=== PATIENT | male | born 1960 | race Asian ===

== ENCOUNTER → 2020-06-04 14:51 | Outpatient (BNVA) | payer MEDICARE, SELFPAY | PROVIDERS: PCP Internal Medicine; Visit Provider Internal Medicine Cardiovascular Disease | DX: I10 Essential (primary) hypertension (principal); E78.00 Pure hypercholesterolemia, unspecified; R94.31 Abnormal electrocardiogram [ECG] [EKG]; R07.9 Chest pain, unspecified | CPT/HCPCS: 93005; 99202 ==

== ENCOUNTER → 2020-07-07 09:18 | Outpatient (REF) | payer MEDICARE, SELFPAY ==
--- NOTE | 2020-07-07 09:22 | CA_ITS ---
Acquisition Time: 2020-07-07 11:21:10 Total Exercise Time: 00:10:39 Test Indications: Abnormal ECG Medications: ATENOLOL ATORVASTATIN LEVOTHYROXINE Protocol: ZULMA Max HR: 141 BPM 88% of Pred: 160 BPM Max BP: 182/082 mmHG Max Work Load: 12.7 METS Exercise stress ECHO using Zulma protocol. Total of 10 min 39 sec. METS 12.70and with TAPHR up to 88 %. Pt tolerated well. Denies any anginal sx. EKG with occ. PVC's, no ischemic changes seen during exercise or in recovery. ECHO images taken at rest and immediately after peak HR achieved. Definity contrast used. Normotensive response to exercise. Test reversed with Dr. Coleman STRESS ECHO : Technique : Images were obtiane da rest and immediately post exercise within 1 minute. Definity was used to enhance endocardial defintion Images were obtained in multiple views and compared side to side Findings : Images at rest are of good quality. LV systolic function is normal with normal wallmotion. Post exercise images are sub optimal as apical views are off axis with respiratory artefact. There appears to be overall excellent augmentation of overall LV systolic function. However RWMA is difficult to interpret. Conclusion : Stress echo non diagnostic for ischemia. COnsider alternative imagin modalities. Referred By: Gasper Parnell Overread By: OLE RAMIREZ MD
--- NOTE | 2020-07-07 09:22 | CA_ITS ---
Transthoracic Echocardiogram Patient (Last, First, Middle): Sj Sánchez Lam Gender: Male Date of : 1960 Age: 59 Procedure Date: 07/07/2020 Procedure Type: Transthoracic Echocardiogram Location: OP Height: 172.72 cm Weight: 68.04 kg BSA: 1.81 m2 Heart Rate: bpm BP: 120 / 90 mmHg Project Controls Specialist: WILLIAM Quarles MD: Gasper Parnell MD Drafting Supervisor: Eder Junior MD Symptoms: R94.31 - Abnormal electrocardiogram [ECG] [EKG] Study Quality: Good ECG Rhythm: Sinus Conclusions: - 1. Normal LV systolic function 2. Normal cardiac valvular Doppler 3. Normal RV systolic pressure 4. No pericardial effusion Findings Left Ventricle Normal left ventricular size, thickness, and systolic function. The visually estimated ejection fraction is between 55-60%. Diastolic function is normal for age. Right Ventricle Normal right ventricular cavity size and systolic function. Atria The left atrium is likely dilated. There is no evidence of interatrial shunt. The right atrium is normal in size. Aortic Valve Normal aortic valve structure and function. There is no aortic valve stenosis. There is no aortic valve regurgitation. Mitral Valve Normal mitral valve structure and function. There is trace mitral valve regurgitation. There is no mitral valve stenosis. Pulmonic Valve The pulmonic valve was not well visualized. Tricuspid Valve Likely normal tricuspid valve structure and function. There is trace tricuspid valve regurgitation. The right ventricular systolic pressure is normal. The right ventricular systolic pressure is 18 mmHg. Normal right atrial pressure. There is no evidence of pulmonary hypertension. Great Vessels All visible segments of the aorta are normal in size. The pulmonary artery was not well visualized. Venous The inferior vena cava is normal in size and collapses greater than 50% with inspiration. Pericardium/Pleural There is no evidence of pericardial effusion. Prior Study Comparison No change compared to prior study dated: 01/08/2017. Measurements 2D Linear Measurements IVSd: 0.90 0.6-0.9/0.6-1.0 cm LVIDd: 5.38 3.9-5.3/4.2-5.9 cm LVIDd Index: 2.97 2.4-3.2/2.2-3.1 cm/m2 LVIDs: 3.35 2.0-3.6 cm LVPWd: 0.96 0.7-1.1 cm Ao Root: 3.40 2.1-3.5 cm LA Diam: 3.70 2.7-3.8/3.0-4.0 cm LAIDs Index: 2.04 1.5-2.3 cm/m2 LV Mass: 232.90 67-162/88-224 g LV Mass Index: 128.67 43-95/49-115 g/m2 LVOT Diam: 2.30 3.0+(-)1.3 cm 2D Systolic Function EF 4C: 55.10 >55% EF 2C: 58.60 >55% EF BiP: 56.70 >55% Mitral Valve MV Pk E: 0.67 MV PK A: 0.55 MV Decel Time: 306.00 E/A: 1.20 E'Lateral: 7.29 E'Medial: 5.87 E/E' Med: 11.50 E/E' Lat: 9.20 PHT: 90.00 MVA PHT: 2.44 Decel [place]: 2.20 Aortic Valve AoV Pk [place]: 1.28 AoV Mn [place]: 0.87 AoV VTI: 0.32 AoV Pk Grad: 7.00 Aov Mn Grad: 3.00 JOSE Cont.VTI: 2.89 LVOT LVOT Pk [place]: 1.03 LVOT Mn [place]: 0.63 LVOT VTI: 0.22 LVOT Pk Grad: 4.00 LVOT Mn Grad: 2.00 LVOT Diam: 2.30 LVOT Area: 4.15 Diastolic Function MV Pk E: 0.67 MV Pk A: 0.55 E/A: 1.20 E'Medial: 5.87 E/E' Med: 11.50 E' Laterial: 7.29 E/E' Lat: 9.20 Tricuspid Valve TR Pk [place]: 1.93 TR Pk Grad: 15.00 RA Press: 3.00 RVSP: 18.00 Great Vessels Aorta Ao Root-2D: 3.40 2.0-3.7 cm Ao Asc: 3.30 2.1-3.4 cm Ao Arch: 2.60 Updated in Other Vendor System with Status of Final Eder Junior MD electronically signed on 07/07/2020 12:37:50 PM with status of Final
== END ==
LOC: HO.CARD 09:18
PROVIDERS: PCP Internal Medicine; Visit Provider Internal Medicine Cardiovascular Disease
DX: R94.31 Abnormal electrocardiogram [ECG] [EKG] (principal)
CPT/HCPCS: 93306; 93350; Q9957

== ENCOUNTER → 2020-07-14 13:00 | Outpatient (BNVA) | payer MEDICARE, SELFPAY | PROVIDERS: PCP Internal Medicine; Visit Provider Internal Medicine Gastroenterology | DX: Z13.89 Encounter for screening for other disorder (principal) | CPT/HCPCS: Q3014 ==

== ENCOUNTER 2020-07-23 08:30 | Outpatient (REF) | payer MEDICARE, SELFPAY ==
--- NOTE | ~2020-07-23 | CT_ITS ---
EXAMINATION: CT ABDOMEN AND PELVIS WITHOUT AND WITH CONTRAST CLINICAL INFORMATION: Liver disease. COMPARISON: None TECHNIQUE: Multidetector volumetric imaging was performed of the abdomen and pelvis before and after the IV administration of 85 mL of Omnipaque 300 intravenous contrast. Sagittal and coronal reformatted images were obtained on the technologist's workstation. This CT examination was performed using dose optimization techniques as appropriate, variously including the following: *Automated exposure control *Adjustment of mA and/or kV according to patient size (this includes techniques or standardized protocols for targeted exams where dose is matched to indication/reason for exam; i.e. extremities or head) *Use of iterative reconstruction technique DLP: 727 mGy-cm FINDINGS: LUNG BASES: The heart size is normal. There is bibasilar dependent atelectasis. LIVER, GALLBLADDER, AND BILIARY TREE: The liver is normal in size, shape, and diffusely attenuated. No focal hepatic lesion or biliary ductal dilatation is present. The gallbladder is unremarkable with no evidence of radiopaque gallstones, gallbladder wall thickening, or obvious pericholecystic inflammatory changes. PANCREAS: Unremarkable SPLEEN: Unremarkable ADRENAL GLANDS: Unremarkable KIDNEYS AND URETERS: The kidneys are normal in size, shape, and attenuation. No hydronephrosis, hydroureter, or calculi seen. No perinephric stranding. BLADDER: Unremarkable GASTROINTESTINAL TRACT: Scattered stool and gas seen throughout the colon without any significant distention. The small bowel loops are normal caliber. Appendix is not visualized. No inflammatory process seen in the abdomen. ABDOMINAL WALL: There are small lumbar canal hernia containing fat. LYMPH NODES: Normal VASCULAR: Unremarkable PELVIC VISCERA: There is no free air or free fluid. No pelvic mass seen. There is moderate stool in the redundant sigmoid colon. No evidence of inguinal hernia.. OSSEOUS STRUCTURES: Mild ventral spondylosis seen at the elbow-4 disc level. No lytic or sclerotic process. CT/CT abdomen pelvis wo/w con IMPRESSION: Diffuse fatty infiltration of liver without focal lesion. No focal lesion or intrahepatic ductal dilatation. Rest of CT abdomen appears unremarkable.
[2020-07-23 11:07] LABS: Alanine Aminotransferase 31 U/L (0-40); Albumin Level 4.5 g/dL (3.5-5.0); Alkaline Phosphatase 70 U/L (39-117); Anion Gap 11 (12-20); Aspartate Amino Transferase 19 U/L (5-37); Bilirubin Total 0.6 mg/dL (0.0-1.0); Blood Urea Nitrogen 14 mg/dL (9-16); Calcium 9.2 mg/dL (8.4-10.2); Carbon Dioxide 27 mmol/L (22-29); Chloride 104 mmol/L (96-108); Estimated Glomerular Filt Rate > 60; Glucose Random 108 mg/dL (60-115); Potassium 4.4 mmol/L (3.3-5.1); Sodium 138 mmol/L (135-145); Total Protein 7.4 g/dL (6.5-8.0)
== END 2020-07-23 08:31 | disposition home or self-care (01) ==
LOC: HO.CT 08:30
PROVIDERS: PCP Internal Medicine; Visit Provider Internal Medicine Gastroenterology
DX: K76.9 Liver disease, unspecified (principal)
CPT/HCPCS: 36415; 74178; 80053; Q9967

== ENCOUNTER 2020-07-31 12:26 | Outpatient (REF) | payer MEDICARE, SELFPAY | END 2020-07-31 12:27 | disposition home or self-care (01) | LOC: HO.WFDLDS 12:26 | PROVIDERS: Visit Provider Internal Medicine | DX: Z20.822 Contact with and (suspected) exposure to COVID-19 (principal) | CPT/HCPCS: 36415; C9803; U0003; U0005 ==

== ENCOUNTER 2020-08-21 08:54 | Day surgery (SDC) | payer MEDICARE, SELFPAY ==
--- NOTE | 2020-08-20 09:23 | P.CONAN_ITS ---
Documented by User: Ema Kenney 08/20/20 12:44 HPI - Anesthesia Eval Consult details Narrative: 59yo M for Upper Endoscopy and Colonoscopy Per T/C with Dr aPrnell, pt is clear at low to intermed risk PMFSH Active Problems Active Problems: All Active Problems (Updated 05/02/20 @ 15:55 by Bruce Acosta MD) Joint pain (Acute) Abnormal EKG (Acute) Chest pain (Acute) Liver lesion (Acute) Dementia (Acute) History of prostate cancer (Acute) Hypercholesterolemia (Acute) Allergic rhinitis (Acute) Hypertension (Acute) Asthma (Acute) Past Medical History Medical History Allergic rhinitis Asthma Dementia History of prostate cancer Hypercholesterolemia Hypertension Hypothyroid Family History Family History Father No problems noted. Mother No problems noted. Surgical History Surgical History History of facial surgery History of inguinal hernia repair History of prostate surgery SAH (subarachnoid hemorrhage) Social History Social History Household Members: Spouse Alcohol intake: current Alcohol intake frequency: does not drink Smoking Status: Never smoker Use of substances other than those prescribed or required for medical reasons: No Advance Directives: No Advance Directives Information Provided: Yes Meds Allergies Allergy/AdvReac Type Severity Reaction Status Date / Time SEASONAL ALLERGIES Allergy Mild Itchy Eyes Uncoded 08/21/20 09:35 Exam Exam Date and Time: August 20, 2020 0923 Height,Weight and Vital Signs: Weight 74.389 kg Narrative Narrative: ECHO 06/2020 Conclusions: - 1. Normal LV systolic function 2. Normal cardiac valvular Doppler 3. Normal RV systolic pressure 4. No pericardial effusion Stress ECHO 06/2020 Conclusion : Stress echo non diagnostic for ischemia. COnsider alternative imagin modalities. Assessment and Plan Assessment Anesthesia Assessment: Chart Reviewed Documented by User: Gisele Hernandez 08/21/20 11:24 [facility] Past Medical History Medical History Allergic rhinitis Asthma Dementia History of prostate cancer Hypercholesterolemia Hypertension Hypothyroid Family History Family History Father No problems noted. Mother No problems noted. Family history of problems with anesthesia: No Surgical History Surgical History History of facial surgery History of inguinal hernia repair History of prostate surgery SAH (subarachnoid hemorrhage) History of Problems with Anesthesia: No Social History Social History Household Members: Spouse Alcohol intake: current Alcohol intake frequency: does not drink Smoking Status: Never smoker Use of substances other than those prescribed or required for medical reasons: No Advance Directives: No Advance Directives Information Provided: Yes Meds Allergies Allergy/AdvReac Type Severity Reaction Status Date / Time SEASONAL ALLERGIES Allergy Mild Itchy Eyes Uncoded 08/21/20 09:35 Exam Exam Date and Time: Height 5 ft 6.93 in Weight 68.039 kg Height,Weight and Vital Signs: Vital Signs Temp Pulse Resp BP Pulse Ox 08/21/20 09:18 96.6 F L 56 18 131/81 100 Airway Mallampati Class: III TM Dist: >3cm Neck ROM: Full Heart: RRR Lungs: CTAB Assessment and Plan Assessment Anesthesia Assessment: Anesthesia Plan Discussed and Chart Reviewed Final Anesthetic Review NPO: Yes ASA Class: III Final Preanesthetic Review: No Changes in Pt Med Stat, Meds/Allgs Chart Reviewed, Consent Obtained/Reviewed and Anes Risks/Benef Reviewed Patient Risk: Intermediate Procedure Risk: Low Assessment/Block/Sedation in SS: Assess/Block/Sedation-SS Anesthetic Plan Anesthetic Plan: MAC: Disposition: Standard PACU
[2020-08-21 09:18] VITALS: BP 131/81; PULSE 56; RESP 18; TEMP 35.9; O2SAT 100; BMI 23.5
[2020-08-21] MEDS: Lactated Ringers 1,000 ML 100 ML IVCONT (09:37)
--- NOTE | 2020-08-21 10:28 | MHC.SHP ---
Pre-Procedural Eval Section B Chief Complaint: Anemia Relevant Family History (Specify if Yes): No Relevant Social History: None Present Medications: see Short Stay Collaborative assessment Medical History: Significant History (Allergic rhinitis Asthma Dementia History of prostate cancer Hypercholesterolemia Hypertension Hypothyroid) History of Previous Operations: Relevant previous surgery/procedure and date(s) Allergies: Allergies Allergy/AdvReac Type Severity Reaction Status Date / Time SEASONAL ALLERGIES Allergy Mild Itchy Eyes Uncoded 08/21/20 09:35 Review of Systems Sugical H&P ROS: Negative: Constitution, Cardiovascular, Respiratory, Neurological, Psychiatric, Hem-Onc, Allergic/Immunologic, Gastrointestinal, Genitourinary, Musculoskeletal, Integumentary, Endocrine and Eyes/Ears/Nose/Throat Exam Surgical H&P Exam: Normal: HEENT, Normal: Heart, Normal: Lungs, Normal: Extremities, Normal: Abdomen, Normal: Skin and Normal: Neurological Plan Diagnosis/Plan: Unchanged I have reviewed the history and physical and performed a pertinent physical examination on my patient. No changes have occurred unless specified.
--- NOTE | 2020-08-21 10:38 | P.OP_ITS ---
Operative Note Operative Note Date of Service: 08/21/20 Narrative: Operative Information Procedure Description: EGD, Colonoscopy FLEXIBLE TRANSORAL UPPER GASTROINTESTINAL ENDOSCOPY AND COLONOSCOPY PROCEDURE NOTE UPPER ENDOSCOPY Consent: Indications for the procedure and potential complications of bleeding, perforation, reaction to medications and missed diagnosis were discussed with the patient and informed consent was obtained. Instrument: Olympus GIF H 190 J mid size upper endoscope Monitoring: Vital signs and clinical assessment, continuous EKG monitoring, Pulse oximetry, Carbon Dioxide monitoring and blood pressure monitoring were done throughout the procedure. Procedure: The patient was placed in the left lateral decubitis position and pre-procedure medications were administered and a bite block was placed. The endoscope was inserted into the mouth and advanced under direct vision to the third part of duodenum. A careful inspection was made as the upper endoscope was withdrawn including a retroflexed examination of the proximal stomach; Findings and interventions are described below. Findings: Larynx:normal Esophagus: GE junction at 40 cm, diaphragm hiatus at 40 cm, few nodular patches at 32 and 22 cm, biopsy taken Stomach: Atrophic gastritis. Biopsies were obtained. Grade 2 flap valve on retroflexed examination of the cardia. Duodenum: Normal bulb and descending duodenum, bx taken Intervention: Biopsies as noted above COLONOSCOPY Instrument: Olympus variable stiffness pediatric scope 190L Colonoscopy Monitoring: Vital signs and clinical assessment, continuous EKG monitoring, Pulse oximetry, Carbon Dioxide monitoring and blood pressure monitoring were done throughout the procedure. Colon withdrawal time was 17 minutes. Procedure: The patient was placed in the left lateral decubitis position and pre-procedure medications were administered. After a digital rectal examination of the ano-rectum, the video colonoscope was inserted into the rectum and advanced through the colon to the cecum/TI. The colonoscope was slowly withdrawn in a retrograde panoramic fashion and the colon mucosa was carefully examined including a retroflexed view of the rectum. Findings and interventions are described below. Procedure Difficulty: moderate due to looping Findings: Terminal Ileum-normal Cecum:normal Ascending Colon: 5-6 mm sessile polyp noted on retroflexion and removed with forceps Transverse Colon - 8-10 mm sessile polyp removed with cold snare Descending Colon:10 mm sessile polyp removed with cold snare Sigmoid Colon: 18-20 mm semi pedunculated polyp removed with cold snare and 4 clips used to close defect and for hemostasis Rectum: Retroflexion with small internal hemorrhoids, grade I Anorectum - normal Colon preparation: [place] Bowel Preparation Scale Right colon; 3 Transverse colon: 3 Left colon; 3 (0 = Unprepared colon segment with mucosa not seen due to solid stool that cannot be cleared. 1 = Portion of mucosa of the colon segment seen, but other areas of the colon segment not well seen due to staining, residual stool and/or opaque liquid. 2 = Minor amount of residual staining, small fragments of stool and/or opaque liquid, but mucosa of colon segment seen well. 3 = Entire mucosa of colon segment seen well with no residual staining, small fragments of stool or opaque liquid) Impression and Post Procedure Diagnosis: Endoscopy Findings: atrophic gastritis Colonoscopy Findings: polyps internal hemorrhoids Plan: Await Pathology results Repeat Colonoscopy in 1-2 years or earlier if clinically indicated High fiber diet leaflet avoid straining at stool, epsom salts and sitz bath, anusol supps or cream as needed office follow up in few months Above findings were reviewed with the patient and relevant handouts were provided if indicated.
--- NOTE | 2020-08-21 10:38 | PM.OP ---
Brief Operative Note Date of Service: 08/21/20 Pre-op diagnosis: anemia Post-op diagnosis: same Procedure: see op note Surgeon: Makenzie Bourgeois MD Anesthesia: MAC Estimated blood loss (mL): 0 Condition: stable Disposition: PACU
[2020-08-21 11:56] VITALS: BP 90/46; PULSE 66; RESP 16; TEMP 36.1; O2SAT 94
[2020-08-21 12:11] VITALS: BP 103/69; PULSE 60; RESP 16; O2SAT 95
[2020-08-21 12:23] VITALS: BP 113/59; PULSE 74; RESP 16; TEMP 36.1; O2SAT 97
== END 2020-08-21 13:05 | disposition home or self-care (01) ==
PROVIDERS: PCP Internal Medicine; Visit Provider Internal Medicine Gastroenterology
PROC: (CPT 45380; principal; 2020-08-21 10:10)
DX: D64.9 Anemia, unspecified (principal); D12.2 Benign neoplasm of ascending colon; D12.3 Benign neoplasm of transverse colon; D12.4 Benign neoplasm of descending colon; D12.5 Benign neoplasm of sigmoid colon; K64.0 First degree hemorrhoids; K56.2 Volvulus; K29.40 Chronic atrophic gastritis without bleeding; K20.90 Esophagitis, unspecified without bleeding; I10 Essential (primary) hypertension; J45.909 Unspecified asthma, uncomplicated
CPT/HCPCS: 45380; 43239; 88305; 88312; 88342; J3010

== ENCOUNTER 2020-10-20 09:02 | Outpatient (REF) | payer MEDICARE, SELFPAY ==
[2020-10-22 14:07] LABS: H Pylori Breath Test DETECTED (NOT DETECTED)
== END 2020-10-20 09:03 | disposition home or self-care (01) ==
LOC: CF 09:02
PROVIDERS: PCP Internal Medicine; Visit Provider Internal Medicine Gastroenterology
DX: Z11.0 Encounter for screening for intestinal infectious diseases (principal); Z87.19 Personal history of other diseases of the digestive system
CPT/HCPCS: 83013; 99211

== ENCOUNTER 2020-12-16 09:00 | Outpatient (REF) | payer MEDICARE, SELFPAY ==
[2020-12-17 13:15] LABS: H Pylori Breath Test NOT DETECTED (NOT DETECTED)
== END 2020-12-16 09:01 | disposition home or self-care (01) ==
LOC: HO.LNP 09:00
PROVIDERS: PCP Internal Medicine; Referring Provider Internal Medicine; Visit Provider Internal Medicine Gastroenterology
DX: Z87.19 Personal history of other diseases of the digestive system (principal)
CPT/HCPCS: 83013

== ENCOUNTER 2021-04-01 09:27 | Outpatient (REF) | payer MEDICARE, SELFPAY ==
[2021-04-01 09:34] LABS: MANUAL DIFF FLAG NO
[2021-04-01 10:09] LABS: Basophils Percent Auto 0.7 % (0-2); Eosinophils Absolute Auto 0.4 X10*3/uL (0.0-0.4); Hemoglobin 13.8 g/dl (14.0-18.0); Imm Gran Abs Auto 0.01 X10*3/uL (0.00-0.03); Imm Gran Pct Auto 0.2 % (0.0-0.4); Immature Retic Fraction 7.4 % (2.3-13.4); Lymphocytes Absolute Auto 2.2 X10*3/uL (1.2-4.9); Lymphocytes Percent Auto 39.1 % (20-40); Mean Corpuscular HGB Conc 32.9 g/dl (31.0-36.0); Mean Corpuscular Hemoglobin 29.8 pg (27.0-33.0); Mean Corpuscular Volume 90.7 fL (80.0-98.0); Mean Platelet Volume 9.5 fL (9.4-12.4); Monocytes Absolute Auto 0.3 X10*3/uL (0.1-1.2); Monocytes Percent Auto 6.1 % (2-11); Neutrophils Absolute Auto 2.6 x10*3/uL (2.0-8.3); Neutrophils Percent Auto 46.9 % (45-73); Platelet Count 262 X10*3/uL (160-400); Red Blood Count 4.63 X10*6/uL (4.60-5.80); Red Cell Distribution Width 12.7 % (11.0-16.0); Retic HGB Equivalent 34.5 pg (30.0-35.0); Reticulocyte Percent 1.3 % (0.5-1.8); Reticulocytes Absolute 0.062 X10*6/uL (0.026-0.095); White Blood Count 5.6 X10*3/uL (4.8-10.8)
[2021-04-01 10:15] LABS: Estimated Average Glucose 126 mg/dL
[2021-04-01 10:39] LABS: Alanine Aminotransferase 30 U/L (0-40); Albumin Level 4.6 g/dL (3.5-5.0); Alkaline Phosphatase 71 U/L (39-117); Anion Gap 12 (12-20); Aspartate Amino Transferase 21 U/L (5-37); Bilirubin Total 0.7 mg/dL (0.0-1.0); Blood Urea Nitrogen 13 mg/dL (9-16); Calcium 9.7 mg/dL (8.4-10.2); Carbon Dioxide 28 mmol/L (22-29); Chloride 103 mmol/L (96-108); Cholesterol 156 mg/dL; Estimated Glomerular Filt Rate > 60; Glucose Random 111 mg/dL (60-115); HDL Cholesterol 39 mg/dL; Iron 140 mcg/dL (45-160); LDL Cholesterol Calculated 93 mg/dl; Percent Iron Saturation 43 % (15-50); Potassium 4.6 mmol/L (3.3-5.1); Sodium 138 mmol/L (135-145); Total Iron Binding Capacity 328 mcg/dL (228-428); Total Protein 7.6 g/dL (6.5-8.0); Triglycerides 120 mg/dL; Unsaturated Iron Binding 188 ug/dL
[2021-04-01 11:01] LABS: Ferritin 118 ng/mL (20-250); Free T4 (Free Thyroxine) 1.03 ng/dL (0.71-1.85); Prostate Specific Antigen Scr < 0.05 ng/mL (<0.05-4.0); Thyroid Stimulating Hormone 0.29 uIU/mL (0.32-4.0)
[2021-04-01 12:09] LABS: Folate > 20.0 ng/mL (> or = 4.0); Vitamin B12 549 pg/mL (200-900)
== END 2021-04-01 09:28 | disposition home or self-care (01) ==
LOC: HO.LAB 09:27
PROVIDERS: PCP Internal Medicine; Visit Provider Internal Medicine
DX: Z12.5 Encounter for screening for malignant neoplasm of prostate (principal); E78.00 Pure hypercholesterolemia, unspecified; E03.9 Hypothyroidism, unspecified; Z85.46 Personal history of malignant neoplasm of prostate
CPT/HCPCS: 36415; 80053; 80061; 82607; 82728; 82746; 83036; 83540; 84153; 84439; 84443; 85025; 85045

== ENCOUNTER 2021-05-01 07:26 | Outpatient (REF) | payer MEDICARE, SELFPAY ==
[2021-05-01 08:29] LABS: Free T4 (Free Thyroxine) 1.05 ng/dL (0.71-1.85); Thyroid Stimulating Hormone 0.37 uIU/mL (0.32-4.0)
== END 2021-05-01 07:27 | disposition home or self-care (01) ==
LOC: HO.LAB 07:26
PROVIDERS: PCP Internal Medicine; Visit Provider Internal Medicine
DX: E03.9 Hypothyroidism, unspecified (principal)
CPT/HCPCS: 36415; 84439; 84443

== ENCOUNTER 2022-04-07 11:32 | Outpatient (REF) | payer MEDICARE, SELFPAY ==
[2022-04-07 11:47] LABS: MANUAL DIFF FLAG NO
[2022-04-07 12:09] LABS: Basophils Absolute Auto 0.1 X10*3/uL (0.0-0.2); Basophils Percent Auto 1.1 % (0-2); Eosinophils Absolute Auto 0.2 X10*3/uL (0.0-0.4); Eosinophils Percent Auto 5.1 % (0-4); Hematocrit 41.3 % (42.0-52.0); Hemoglobin 13.2 g/dl (14.0-18.0); Imm Gran Abs Auto 0.02 X10*3/uL (0.00-0.03); Imm Gran Pct Auto 0.4 % (0.0-0.4); Lymphocytes Absolute Auto 1.9 X10*3/uL (1.2-4.9); Lymphocytes Percent Auto 41.1 % (20-40); Mean Corpuscular Hemoglobin 28.9 pg (27.0-33.0); Mean Corpuscular Volume 90.4 fL (80.0-98.0); Mean Platelet Volume 9.4 fL (9.4-12.4); Monocytes Absolute Auto 0.3 X10*3/uL (0.1-1.2); Monocytes Percent Auto 6.6 % (2-11); Neutrophils Absolute Auto 2.1 x10*3/uL (2.0-8.3); Neutrophils Percent Auto 45.7 % (45-73); Platelet Count 257 X10*3/uL (160-400); Red Blood Count 4.57 X10*6/uL (4.60-5.80); Red Cell Distribution Width 12.6 % (11.0-16.0); White Blood Count 4.6 X10*3/uL (4.8-10.8)
[2022-04-07 12:43] LABS: Alanine Aminotransferase 30 U/L (0-40); Albumin Level 4.5 g/dL (3.5-5.0); Alkaline Phosphatase 80 U/L (39-117); Anion Gap 13 (12-20); Aspartate Amino Transferase 23 U/L (5-37); Bilirubin Total 0.5 mg/dL (0.0-1.0); Blood Urea Nitrogen 12 mg/dL (9-16); Calcium 9.6 mg/dL (8.4-10.2); Carbon Dioxide 27 mmol/L (22-29); Chloride 105 mmol/L (96-108); Cholesterol 148 mg/dL; Estimated Glomerular Filt Rate > 60; Glucose Random 106 mg/dL (60-115); HDL Cholesterol 42 mg/dL; LDL Cholesterol Calculated 88 mg/dl; Potassium 4.4 mmol/L (3.3-5.1); Sodium 141 mmol/L (135-145); Total Protein 7.3 g/dL (6.5-8.0); Triglycerides 91 mg/dL
[2022-04-07 13:05] LABS: Free T4 (Free Thyroxine) 0.99 ng/dL (0.71-1.85); Prostate Specific Antigen Scr < 0.10 ng/mL (<0.05-4.0); Thyroid Stimulating Hormone 0.05 uIU/mL (0.32-4.0)
[2022-04-07 14:00] LABS: Folate 18.2 ng/mL (> or = 4.0); Vitamin B12 541 pg/mL (200-900)
== END 2022-04-07 11:33 | disposition home or self-care (01) ==
LOC: HO.LAB 11:32
PROVIDERS: PCP Internal Medicine; Visit Provider Internal Medicine
DX: Z12.5 Encounter for screening for malignant neoplasm of prostate (principal); E03.9 Hypothyroidism, unspecified; E78.00 Pure hypercholesterolemia, unspecified
CPT/HCPCS: 36415; 80053; 80061; 82607; 82746; 84153; 84439; 84443; 85025

== ENCOUNTER 2022-10-05 10:16 | Outpatient (REF) | payer MEDICARE, SELFPAY ==
[2022-10-05 12:20] LABS: Free T4 (Free Thyroxine) 1.03 ng/dL (0.71-1.85); Thyroid Stimulating Hormone 7.49 uIU/mL (0.32-4.0)
== END 2022-10-05 10:17 | disposition home or self-care (01) ==
LOC: HO.LAB 10:16
PROVIDERS: PCP Internal Medicine; Visit Provider Internal Medicine
DX: E03.9 Hypothyroidism, unspecified (principal)
CPT/HCPCS: 36415; 84439; 84443

== ENCOUNTER 2022-11-29 12:16 | Outpatient (REF) | payer MEDICARE, SELFPAY ==
[2022-11-29 12:55] LABS: MANUAL DIFF FLAG NO
[2022-11-29 13:52] LABS: Basophils Percent Auto 0.5 % (0-2); Eosinophils Absolute Auto 0.3 X10*3/uL (0.0-0.4); Eosinophils Percent Auto 4.3 % (0-4); Hematocrit 41.3 % (42.0-52.0); Hemoglobin 13.7 g/dl (14.0-18.0); Imm Gran Abs Auto 0.02 X10*3/uL (0.00-0.03); Imm Gran Pct Auto 0.3 % (0.0-0.4); Immature Retic Fraction 8.4 % (2.3-13.4); Lymphocytes Absolute Auto 1.8 X10*3/uL (1.2-4.9); Lymphocytes Percent Auto 28.8 % (20-40); Mean Corpuscular HGB Conc 33.2 g/dl (31.0-36.0); Mean Corpuscular Hemoglobin 30.3 pg (27.0-33.0); Mean Corpuscular Volume 91.4 fL (80.0-98.0); Mean Platelet Volume 9.2 fL (9.4-12.4); Monocytes Absolute Auto 0.4 X10*3/uL (0.1-1.2); Monocytes Percent Auto 6.8 % (2-11); Neutrophils Absolute Auto 3.7 x10*3/uL (2.0-8.3); Neutrophils Percent Auto 59.3 % (45-73); Platelet Count 286 X10*3/uL (160-400); Red Blood Count 4.52 X10*6/uL (4.60-5.80); Red Cell Distribution Width 12.8 % (11.0-16.0); Retic HGB Equivalent 35.5 pg (30.0-35.0); Reticulocyte Percent 1.7 % (0.5-1.8); Reticulocytes Absolute 0.076 X10*6/uL (0.026-0.095); White Blood Count 6.3 X10*3/uL (4.8-10.8)
[2022-11-29 14:56] LABS: Alanine Aminotransferase 20 U/L (0-40); Albumin Level 4.5 g/dL (3.5-5.0); Alkaline Phosphatase 64 U/L (39-117); Aspartate Amino Transferase 18 U/L (5-37); Bilirubin Total 0.8 mg/dL (0.0-1.0); Blood Urea Nitrogen 15 mg/dL (9-16); Calcium 9.9 mg/dL (8.4-10.2); Carbon Dioxide 28 mmol/L (22-29); Chloride 104 mmol/L (96-108); Estimated Glomerular Filt Rate > 60; Glucose Random 102 mg/dL (60-115); Iron 130 mcg/dL (45-160); Percent Iron Saturation 42 % (15-50); Potassium 4.6 mmol/L (3.3-5.1); Sodium 140 mmol/L (135-145); Total Iron Binding Capacity 310 mcg/dL (228-428); Total Protein 7.5 g/dL (6.5-8.0); Unsaturated Iron Binding 180 ug/dL
[2022-11-29 15:05] LABS: Anion Gap 14 (12-20); Thyroid Stimulating Hormone 5.29 uIU/mL (0.32-4.0)
[2022-11-29 15:22] LABS: Folate 17.5 ng/mL (> or = 4.0)
[2022-11-29 15:32] LABS: Ferritin 148 ng/mL (20-250)
[2022-11-29 15:41] LABS: Vitamin B12 822 pg/mL (200-900)
== END 2022-11-29 12:17 | disposition home or self-care (01) ==
LOC: HO.LAB 12:16
PROVIDERS: PCP Internal Medicine; Visit Provider Internal Medicine
DX: E03.9 Hypothyroidism, unspecified (principal); D64.9 Anemia, unspecified
CPT/HCPCS: 36415; 80053; 82607; 82728; 82746; 83540; 84439; 84443; 85025; 85045

== ENCOUNTER 2023-01-24 11:25 | Outpatient (REF) | payer MEDICARE, SELFPAY ==
[2023-01-24 14:50] LABS: Free T4 (Free Thyroxine) 0.78 ng/dL (0.71-1.85); Thyroid Stimulating Hormone 3.86 uIU/mL (0.32-4.0)
== END 2023-01-24 11:26 | disposition home or self-care (01) ==
LOC: HO.LAB 11:25
PROVIDERS: PCP Internal Medicine; Visit Provider Internal Medicine
DX: E03.9 Hypothyroidism, unspecified (principal)
CPT/HCPCS: 36415; 84439; 84443

== ENCOUNTER 2023-01-31 11:01 | Outpatient (AMB) | payer MEDICARE, SELFPAY ==
--- NOTE | 2023-01-31 11:08 | A.OFFPC_ITS ---
Vital Signs 01/31/23 11:09 Height 5 ft 6 in Weight 157 lb BMI 25.3 BP 132/80 Blood Pressure Location Lt brachial Position Sitting Pulse 56 Pulse Source Pulse Oximeter Pulse Oximetry (%) 100 Oxygen Delivery Method Room Air Intake Visit Reasons: hypothyroid Intake Note: Patient here for a follow up hypothyroid Oil Program Compliance Specialist Required: No Accompanied by: Spouse Allergies SEASONAL ALLERGIES Allergy (Mild, Uncoded 01/31/23 11:10) Itchy Eyes Medication List - Last Reconciled 01/31/23 by Bruce Acosta MD albuterol sulfate 90 mcg/actuation 2 puffs inhalation Q4H PRN atenolol 25 mg PO DAILY atorvastatin 20 mg PO DAILY 90 days capsaicin 0.025% 1 appl topical TID fluticasone propionate 50 mcg/actuation (Flonase Allergy Relief) 2 sprays intranasal DAILY levothyroxine 112 mcg PO DAILY 30 days multivitamin 1 tab PO DAILY Tobacco use date assessed: 10/12/22 Dental Screening Dental Screen Date: 01/31/23 Did you have a dental visit in the last 12 months?: Yes Did you have a dental problem in the last 6 months where you did not have access to dental care?: No Was dental information given to patient?: Patient has dentist HPI hypothyroid HPI Details 62-year-old male with a history of prost ate cancer, hypercholesterolemia hypertension and hypothyroid last seen in September 2022. Patient's colonoscopy is up-to-date August 2020 patient is here for follow-up [facility] Medical History (Updated 01/31/23 @ 11:25 by Bruce Acosta MD) Vision changes Dementia History of prostate cancer Hypercholesterolemia Allergic rhinitis Hypertension Asthma Hypothyroid Surgical History History of facial surgery History of inguinal hernia repair SAH (subarachnoid hemorrhage) History of prostate surgery Family History Father No problems noted. Mother No problems noted. Social History Household Members: Spouse Housing: House Alcohol intake: never Patient Tobacco Use Status: Never used Tobacco e-Cigarette/Vaping Use: Never Used Second Hand Smoke Exposure: No service: No Current occupational status: retired Cognitive needs: No Hearing needs: No Vision needs: No Questionnaire Thrive Questionnaire Date Thrive assessed: 10/12/22 JACOB-7 AMB Questionnaire JACOB-7 Date JACOB - 7 assessed: 10/12/22 Source: Developed by Drs. Rosalino Reilly, Kiya Munoz, Manny Palmer and colleagues, with an educational mj from [employer]. Physical exam (Primary Care) Vital Signs: Last Vital Signs Pulse 56 01/31/23 11:09 BP 132/80 01/31/23 11:09 Pulse Ox 100 01/31/23 11:09 Oxygen Delivery Method Room Air 01/31/23 11:09 BMI result Body Mass Index 25.3 Tobacco/Smoking Status: Tobacco use Status Tobacco use date assessed 10/12/22 01/31/23 11:09 Patient Tobacco Use Status Never used Tobacco 01/31/23 11:09 e-Cigarette/Vaping Use Never Used 01/31/23 11:09 Thrive Assessment: Date of Thrive Assessment Date Thrive assessed 10/12/22 01/31/23 11:09 Const General: alert; No acute distress Eyes Conjunctivae: conjunctivae normal Resp Auscultation: clear to auscultation bilaterally Cardio Rate: regular rate Rhythm: regular rhythm GI Inspection: Yes normal to inspection Extrem General: Yes normal to inspection and No edema Assessment and Plan Assessment & Plan (1) History of prostate cancer: Comment: September 2012 Code(s): Z85.46 - Personal history of malignant neoplasm of prostate Plan: Last blood work for the PSA is in March 2022. (2) Hypercholesterolemia: Code(s): E78.00 - Pure hypercholesterolemia, unspecified Plan: Avoid fried foods, chicken skin, eggs, butter margarine, pastries and meat. Be it pork or beef they have a lot of cholesterol LDL goal of less than 130 and triglyceride of less than 150. Patient is on atorvastatin 20 mg last blood work was in March 2022 (3) Hypertension: Code(s): I10 - Essential (primary) hypertension Qualifiers: Hypertension type: essential hypertension Qualified Code(s): I10 - Essential (primary) hypertension Plan: Continue with blood pressure medication. Decrease salt intake and exercise patient is on atenolol 25 mg once a day (4) Asthma: Code(s): J45.909 - Unspecified asthma, uncomplicated Qualifiers: Asthma severity: mild Asthma persistence: intermittent Asthma complication type: uncomplicated Qualified Code(s): J45.20 - Mild intermittent asthma, uncomplicated Plan: Continue with the inhaler as needed (5) Hypothyroid: Code(s): E03.9 - Hypothyroidism, unspecified Plan: TSH is good continue with present dose of 112 mcg once a day (6) Vision changes: Code(s): H53.9 - Unspecified visual disturbance Orders: Orders Comprehensive Met. Panel 3 Months E78.00 - Pure hypercholesterolemia, unspecified Lipid Panel 3 Months E78.00 - Pure hypercholesterolemia, unspecified PSA,Total (Free>4and<10) 3 Months Z85.46 - Personal history of malignant neoplasm of prostate Complete Blood Count Auto Diff 3 Months E78.00 - Pure hypercholesterolemia, unspecified Free T4 (Free Thyroxine) 3 Months E78.00 - Pure hypercholesterolemia, unspecified Thyroid Stimulating Hormone 3 Months E78.00 - Pure hypercholesterolemia, unspecified Vitamin B12 and Folate 3 Months E78.00 - Pure hypercholesterolemia, unspecified Referrals Ophthalmology Referral H53.9 - Unspecified visual disturbance Medications: Refilled albuterol sulfate 90 mcg/actuation 8.5gm 200puffs 2 puffs inhalation Q4H PRN 8.5 grams 0RF shortness of breath or wheezing K52.9 - Noninfective gastroenteritis and colitis, unspecified atorvastatin 20 mg PO DAILY 90 tabs 3RF 90 days E78.00 - Pure h ypercholesterolemia, unspecified fluticasone propionate 50 mcg/actuation (Flonase Allergy Relief) administer into each nostril 2 sprays intranasal DAILY 16 grams 8RF J30.9 - Allergic rhinitis, unspecified Coding Level of Care Code Est Pt Level 4 (36332) Diagnoses History of prostate cancer Z85.46 Hypercholesterolemia E78.00 Essential hypertension I10 Hypertension type: essential hypertension Mild intermittent asthma without complication J45.20 Asthma severity: mild Asthma persistence: intermittent Asthma complication type: uncomplicated Hypothyroid E03.9 Vision changes H53.9
[2023-01-31 11:09] VITALS: BP 132/80; PULSE 56; O2SAT 100; BMI 25.3
== END 2023-01-31 11:35 | disposition home or self-care (01) ==
PROVIDERS: Visit Provider Internal Medicine
DX: I10 Essential (primary) hypertension (principal); J45.20 Mild intermittent asthma, uncomplicated; Z85.46 Personal history of malignant neoplasm of prostate; E03.9 Hypothyroidism, unspecified; E78.00 Pure hypercholesterolemia, unspecified; H53.9 Unspecified visual disturbance
CPT/HCPCS: 99214

== ENCOUNTER 2023-04-18 13:39 | Emergency (ER) | payer MEDICARE, SELFPAY ==
--- NOTE | ~2023-04-18 | CT_ITS ---
CT HEAD WITHOUT IV CONTRAST CT CERVICAL SPINE WITHOUT IV CONTRAST INDICATION: Fall with head injury. COMPARISON: Brain MRI 03/03/2017. TECHNIQUE: Multidetector CT acquisitions of the head and cervical spine were obtained without IV contrast. Multiplanar reformats were acquired and utilized for image interpretation. This CT examination was performed using dose optimization techniques as appropriate, variously including the following: *Automated exposure control *Adjustment of mA and/or kV according to patient size (this includes techniques or standardized protocols for targeted exams where dose is matched to indication/reason for exam; i.e. extremities or head) *Use of iterative reconstruction technique FINDINGS: HEAD: There is a small right hemispheric subdural fluid collection without acute blood products. Stable chronic prominence of the extra-axial CSF spaces within the posterior fossa. Partially empty sella No significant mass effect. There is no intracranial hemorrhage, hydrocephalus, midline shift, or other herniation pattern. Chance to white matter differentiation is diffusely maintained without evidence of an evolved acute territorial infarct. The basilar cisterns are preserved. No significant soft tissue abnormality. No acute osseous abnormality. The paranasal sinuses and the mastoid air cells are well aerated. CERVICAL SPINE: Reversal of the cervical lordosis. There is multilevel cervical spondylosis. No acute fractures no acute subluxations. Multilevel endplate osteophytes, the largest at C5-C6 and C6-C7. Mild multilevel hypertrophic facet arthropathy. Craniocervical junction is unremarkable. There is no prevertebral soft tissue swelling. CT/CT cervical spine wo IV con IMPRESSION: - No acute intracranial abnormality. There is a small right hemispheric subdural fluid collection without acute blood products. No significant mass effect. - No acute osseous abnormality within the cervical spine.
--- NOTE | ~2023-04-18 | CT_ITS ---
EXAMINATION: CT head/brain wo IV con CLINICAL INFORMATION: Reason for Exam repeat head CT severe headache COMPARISON: Same day noncontrast head CT TECHNIQUE: Contiguous axial imaging was performed from the skull base to vertex without intravenous contrast. Sagittal and coronal reformatted images were obtained. This CT examination was performed using dose optimization techniques as appropriate, variously including the following: * Automated exposure control * Adjustment of mA and/or kV according to patient size (this includes techniques or standardized protocols for targeted exams where dose is matched to indication/reason for exam; i.e. extremities or head) Use of iterative reconstruction technique DLP: 631 mGy-cm FINDINGS: No acute osseous or soft tissue abnormality. The mastoids are clear. Mild ethmoid sinus mucosal thickening. There is no evidence of acute intracranial hemorrhage or territorial infarction. No abnormal mass effect or midline shift is seen. Chance to white matter differentiation is well preserved. Stable thin -right frontal hypodense subdural collection, likely representing a hygroma. No hydrocephalus. No significant volume loss. There is no abnormal attenuation within the brain parenchyma. CT/CT head/brain wo IV con IMPRESSION: No acute intracranial abnormality including hemorrhage, mass effect, hydrocephalus, or acute territorial edematous infarction.
--- NOTE | ~2023-04-18 | XR_ITS ---
EXAMINATION: XR CHEST CLINICAL INFORMATION: Syncope COMPARISON: None available. TECHNIQUE: 2 views of the chest were obtained. FINDINGS: No significant abnormality is noted involving the heart, lungs, mediastinum, bony thorax or soft tissues. XR/XR chest 2V IMPRESSION: Unremarkable chest examination.
[2023-04-18 13:46] VITALS: BP 124/78; PULSE 55; RESP 16; TEMP 36.6; O2SAT 97; BMI 23.5
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
--- NOTE | 2023-04-18 13:48 | ECG_ITS ---
Test Reason : fall Blood Pressure : / mmHG Vent. Rate : 060 BPM Atrial Rate : 060 BPM P-R Int : 168 ms QRS Dur : 108 ms QT Int : 402 ms P-R-T Axes : 008 -22 002 degrees QTc Int : 402 ms Normal sinus rhythm Voltage criteria for left ventricular hypertrophy ( R in aVL , Sokolow-Trent , Amado product ) Nonspecific ST and T wave abnormality Abnormal ECG When compared with ECG of 07-FEB-2020 09:19, Nonspecific T wave abnormality has replaced inverted T waves in Inferior leads Referred By: Ronit Valentine Electronically Signed By:SHERICE GARG
[2023-04-18 14:43] LABS: MANUAL DIFF FLAG NO
[2023-04-18 14:47] LABS: Basophils Absolute Auto 0.1 X10*3/uL (0.0-0.2); Eosinophils Absolute Auto 0.3 X10*3/uL (0.0-0.4); Eosinophils Percent Auto 5.7 % (0-4); Hematocrit 41.2 % (42.0-52.0); Hemoglobin 13.5 g/dl (14.0-18.0); Imm Gran Abs Auto 0.01 X10*3/uL (0.00-0.03); Imm Gran Pct Auto 0.2 % (0.0-0.4); Lymphocytes Absolute Auto 1.9 X10*3/uL (1.2-4.9); Lymphocytes Percent Auto 36.1 % (20-40); Mean Corpuscular HGB Conc 32.8 g/dl (31.0-36.0); Mean Corpuscular Hemoglobin 30.4 pg (27.0-33.0); Mean Corpuscular Volume 92.8 fL (80.0-98.0); Mean Platelet Volume 9.2 fL (9.4-12.4); Monocytes Absolute Auto 0.3 X10*3/uL (0.1-1.2); Monocytes Percent Auto 6.3 % (2-11); Neutrophils Absolute Auto 2.7 x10*3/uL (2.0-8.3); Neutrophils Percent Auto 50.7 % (45-73); Platelet Count 235 X10*3/uL (160-400); Red Blood Count 4.44 X10*6/uL (4.60-5.80); Red Cell Distribution Width 12.8 % (11.0-16.0); White Blood Count 5.2 X10*3/uL (4.8-10.8)
[2023-04-18 14:59] LABS: INTERNATIONAL NORM RATIO 0.9 (0.9-1.1); Prothrombin Time 10.6 SEC (11.1-13.3)
[2023-04-18 15:02] LABS: Alanine Aminotransferase 18 U/L (0-40); Albumin Level 4.3 g/dL (3.5-5.0); Alkaline Phosphatase 74 U/L (39-117); Anion Gap 12 (12-20); Aspartate Amino Transferase 17 U/L (5-37); Bilirubin Total 0.4 mg/dL (0.0-1.0); Blood Urea Nitrogen 16 mg/dL (9-16); Calcium 9.2 mg/dL (8.4-10.2); Carbon Dioxide 23 mmol/L (22-29); Chloride 107 mmol/L (96-108); Creatinine Clr Calc Pharmacy 73.6; Estimated Glomerular Filt Rate > 60; Glucose Random 114 mg/dL (60-115); Magnesium 2.2 mg/dL (1.6-2.6); Partial Thromboplastin Time 31.7 SEC (26.0-36.4); Potassium 3.7 mmol/L (3.3-5.1); Sodium 138 mmol/L (135-145); Total Protein 7.5 g/dL (6.5-8.0)
[2023-04-18 15:15] LABS: Troponin-I High Sensitivity < 2.7 ng/L (<3.5-35.0)
[2023-04-18 15:23] LABS: Influenza A PCR NEGATIVE (Negative); Influenza B PCR NEGATIVE (Negative); Resp Syncy Virus RNA Qual PCR NEGATIVE (Negative); SARS COV2 PCR INHOUSE NEGATIVE (Negative)
[2023-04-18 19:57] VITALS: BP 125/78; PULSE 53; RESP 16; TEMP 36.8; O2SAT 98
[2023-04-18 22:20] VITALS: BP 138/81; PULSE 58; RESP 14; TEMP 36.4; O2SAT 100
[2023-04-18] MEDS: Acetaminophen 325 MG TABLET 650 MG PO (22:23)
== END 2023-04-18 22:29 | disposition home or self-care (01) ==
PROVIDERS: Physician Assistant Medical; Emergency Provider Emergency Medicine; PCP Internal Medicine
DX: F07.81 Postconcussional syndrome (principal); D18.1 Lymphangioma, any site; R94.31 Abnormal electrocardiogram [ECG] [EKG]; R51.9 Headache, unspecified; M54.2 Cervicalgia; Z20.822 Contact with and (suspected) exposure to COVID-19; Z20.828 Contact with and (suspected) exposure to other viral communicable diseases; Z79.899 Other long term (current) drug therapy
CPT/HCPCS: 0241U; 70450; 71046; 72125; 80053; 83735; 84484; 85025; 85610; 85730; 93005; 99284

== ENCOUNTER → 2023-04-18 13:48 | Outpatient (BNV) | payer MEDICARE, SELFPAY | PROVIDERS: PCP Internal Medicine; Visit Provider Internal Medicine | DX: R07.9 Chest pain, unspecified (principal); R94.31 Abnormal electrocardiogram [ECG] [EKG] | CPT/HCPCS: 93010 ==

== ENCOUNTER 2023-05-18 09:08 | Outpatient (REF) | payer MEDICARE, SELFPAY ==
[2023-05-18 09:34] LABS: MANUAL DIFF FLAG NO
[2023-05-18 10:16] LABS: Basophils Percent Auto 0.6 % (0-2); Eosinophils Absolute Auto 0.4 X10*3/uL (0.0-0.4); Eosinophils Percent Auto 5.6 % (0-4); Hematocrit 42.8 % (42.0-52.0); Hemoglobin 14.1 g/dl (14.0-18.0); Imm Gran Abs Auto 0.02 X10*3/uL (0.00-0.03); Imm Gran Pct Auto 0.3 % (0.0-0.4); Lymphocytes Absolute Auto 2.8 X10*3/uL (1.2-4.9); Lymphocytes Percent Auto 42.1 % (20-40); Mean Corpuscular HGB Conc 32.9 g/dl (31.0-36.0); Mean Corpuscular Hemoglobin 29.8 pg (27.0-33.0); Mean Corpuscular Volume 90.5 fL (80.0-98.0); Mean Platelet Volume 9.4 fL (9.4-12.4); Monocytes Absolute Auto 0.5 X10*3/uL (0.1-1.2); Monocytes Percent Auto 6.9 % (2-11); Neutrophils Absolute Auto 2.9 x10*3/uL (2.0-8.3); Neutrophils Percent Auto 44.5 % (45-73); Platelet Count 269 X10*3/uL (160-400); Red Blood Count 4.73 X10*6/uL (4.60-5.80); White Blood Count 6.6 X10*3/uL (4.8-10.8)
[2023-05-18 10:56] LABS: Alanine Aminotransferase 20 U/L (0-40); Albumin Level 4.7 g/dL (3.5-5.0); Alkaline Phosphatase 63 U/L (39-117); Anion Gap 10 (12-20); Aspartate Amino Transferase 19 U/L (5-37); Bilirubin Total 0.5 mg/dL (0.0-1.0); Blood Urea Nitrogen 16 mg/dL (9-16); Calcium 9.7 mg/dL (8.4-10.2); Carbon Dioxide 28 mmol/L (22-29); Chloride 106 mmol/L (96-108); Cholesterol 170 mg/dL (<200); Estimated Glomerular Filt Rate > 60; Glucose Random 109 mg/dL (60-115); HDL Cholesterol 44 mg/dL (>40); LDL Cholesterol Calculated 93 mg/dL (<100); Potassium 4.4 mmol/L (3.3-5.1); Sodium 140 mmol/L (135-145); Total Protein 7.9 g/dL (6.5-8.0); Triglycerides 169 mg/dL (<150)
[2023-05-18 11:11] LABS: Free T4 (Free Thyroxine) 1.13 ng/dL (0.71-1.85); Thyroid Stimulating Hormone 1.33 uIU/mL (0.32-4.0)
[2023-05-18 11:22] LABS: PSA,Total (Free>4and<10) < 0.10 ng/mL (0.00-4.00)
[2023-05-18 11:26] LABS: Folate 13.5 ng/mL (> or = 4.0); Vitamin B12 598 pg/mL (200-900)
== END 2023-05-18 09:09 | disposition home or self-care (01) ==
LOC: HO.LAB 09:08
PROVIDERS: PCP Internal Medicine; Visit Provider Internal Medicine
DX: E78.00 Pure hypercholesterolemia, unspecified (principal); E03.9 Hypothyroidism, unspecified; Z85.46 Personal history of malignant neoplasm of prostate
CPT/HCPCS: 36415; 80053; 80061; 82607; 82746; 84153; 84439; 84443; 85025

== ENCOUNTER 2023-06-01 10:04 | Outpatient (AMB) | payer MEDICARE, SELFPAY ==
[2023-06-01 10:07] VITALS: BP 120/68; PULSE 59; O2SAT 98; BMI 24.6
--- NOTE | 2023-06-01 10:07 | MHC.PC.OV ---
Vital Signs 06/01/23 10:07 Height 5 ft 7 in Weight 157 lb BMI 24.6 BP 120/68 Blood Pressure Location Lt brachial Position Sitting Pulse 59 Pulse Source Pulse Oximeter Pulse Oximetry (%) 98 Oxygen Delivery Method Room Air Intake Visit Reasons: 4 month f/u Allergies SEASONAL ALLERGIES Allergy (Mild, Uncoded 06/01/23 10:07) Itchy Eyes Tobacco use date assessed: 06/01/23 Dental Screening Dental Screen Date: 06/01/23 Did you have a dental visit in the last 12 months?: Yes Did you have a dental problem in the last 6 months where you did not have access to dental care?: No Was dental information given to patient?: Patient has dentist HPI 4 month f/u HPI Details 62-year-old male with a history of prostate cancer March 2022 hypertension hypercholesterolemia asthma hypothyroidism last seen in January 2023. Patient's colonoscopy is up-to-date August 2020 noted from the notes head injury April 09 went to the ER April for passed out and had head trauma diagnosis of pawn postconcussion syndrome hygroma with a persistent [facility] Medical History Vision changes Dementia History of prostate cancer Hypercholesterolemia Allergic rhinitis Hypertension Asthma Hypothyroid Surgical History History of facial surgery History of inguinal hernia repair SAH (subarachnoid hemorrhage) History of prostate surgery Family History Father No problems noted. Mother No problems noted. Social History Household Members: Spouse Housing: House Alcohol intake: never Patient Tobacco Use Status: Never used Tobacco e-Cigarette/Vaping Use: Never Used Second Hand Smoke Exposure: No service: No Current occupational status: retired Cognitive needs: No Hearing needs: No Vision needs: No Questionnaire PHQ-9 Over the last 2 weeks, how often have you been bothered by any of the following problems? 1. Little interest or pleasure in doing things: several days 2. Feeling down, depressed, or hopeless: several days 3. Trouble falling or staying asleep, or sleeping too much: more than half the days 4. Feeling tired or having little energy: several days 5. Poor appetite or overeating: several days 6. Feeling bad about yourself - or that you are a failure or have let yourself or your family down: several days 7. Trouble concentrating on things, such as reading the newspaper or watching television: several days 8. Moving or speaking so slowly that other people could have noticed. Or the opposite - being so fidgety or restless that you have been moving around a lot more than usual: more than half the days 9. Thoughts that you would be better off or of hurting yourself in some way: not at all Total score: 10 Depression Screening Interpretation: Positive Depression Screening Done: Yes Source: Developed by Drs. Rosalino Reilly, Kiay Munoz, Manny Palmer and colleagues, with an educational mj from [employer]. Thrive Questionnaire Date Thrive assessed: 06/01/23 I am a: Patient What is your living situation today?: I have a steady place to live Within the past 12 months, did the food you bought not last and you didn't have the money to get more?: Never true Within the past 12 months, did you worry whether your food would run out before you got money to buy more?: Never true Do you have trouble paying for medicines?: No Do you have trouble getting transportation to medical appointments?: No Do you have trouble paying your heating and electricity bill?: No Do you have trouble taking care of your child, family member or friend?: No Do you have trouble with day-to-day activities such as bathing, preparing meals, shopping, managing finances, etc.?: No Are you currently unemployed and looking for a job?: No Are you interested in more education?: No AUDIT C Alcohol Use Questionnaire (AUDIT-C) 1. How often do you have a drink containing alcohol?: Never Total Score: 0 JACOB-7 AMB Questionnaire JACOB-7 Date JACOB - 7 assessed: 06/01/23 Feeling nervous, anxious, or on edge: 0 = Not at all Not being able to stop or control worryin = Not at all Worrying too much about different things: 0 = Not at all Trouble relaxin = Not at all Being so restless that it is hard to sit still: 0 = Not at all Becoming easily annoyed or irritable: 0 = Not at all Feeling afraid as if something awful might happen: 0 = Not at all Total JACOB-7 score (0-4 normal; 5-9 mild; 10-14 moderate; 15-21 severe): 0 Source: Developed by Drs. Rosalino Reilly, Kiya Munoz, Manny Palmer and colleagues, with an educational mj from [employer]. Physical exam (Primary Care) Vital Signs: Last Vital Signs Pulse 59 06/01/23 10:07 BP 120/68 06/01/23 10:07 Pulse Ox 98 06/01/23 10:07 Oxygen Delivery Method Room Air 06/01/23 10:07 BMI result Body Mass Index 24.6 Tobacco/Smoking Status: Tobacco use Status Tobacco use date assessed 06/01/23 06/01/23 10:08 Patient Tobacco Use Status Never used Tobacco 06/01/23 10:08 e-Cigarette/Vaping Use Never Used 06/01/23 10:08 PHQ-9: PHQ-9 Score PHQ-9: Total score 10 06/01/23 10:08 Depression Screening Interpretation: Positive Thrive Assessment: Date of Thrive Assessment Date Thrive assessed 06/01/23 06/01/23 10:08 Const General: alert; No acute distress Eyes Conjunctivae: conjunctivae normal Resp Auscultation: clear to auscultation bilaterally Cardio Rate: regular rate Rhythm: regular rhythm GI Inspection: Yes normal to inspection Extrem General: Yes normal to inspection and No edema Assessment and Plan Assessment & Plan (1) Asthma: Code(s): J45.909 - Unspecified asthma, uncomplicated Qualifiers: Asthma severity: mild Asthma persistence: intermittent Asthma complication type: uncomplicated Qualified Code(s): J45.20 - Mild intermittent asthma, uncomplicated Plan: Continue with the inhaler as needed (2) Hypertension: Code(s): I10 - Essential (primary) hypertension Qualifiers: Hypertension type: essential hypertension Qualified Code(s): I10 - Essential (primary) hypertension Plan: Continue with blood pressure medication. Decrease salt intake and exercise takes atenolol 25 mg once a day and blood pressure has been stable (3) Hypercholesterolemia: Code(s): E78.00 - Pure hypercholesterolemia, unspecified Plan: Avoid fried foods, chicken skin, eggs, butter margarine, pastries and meat. Be it pork or beef they have a lot of cholesterol LDL goal of less than 130 and triglyceride of less than 150 patient on atorvastatin 20 mg once a day (4) History of prostate cancer: Comment: September 2012 Code(s): Z85.46 - Personal history of malignant neoplasm of prostate Plan: Continue to be followed up by Urology (5) Dementia: Comment: Two thousand eighteen Code(s): F03.90 - Unspecified dementia, unspecified severity, without behavioral disturbance, psychotic disturbance, mood disturbance, and anxiety Qualifiers: Dementia type: Alzheimer's Alzheimer's disease onset: unspecified onset Dementia behavioral disturbance: with behavioral disturbance Qualified Code(s): G30.9 - Alzheimer's disease, unspecified; F02.81 - Dementia in other diseases classified elsewhere with behavioral disturbance Plan: Supportive treatment (6) Hypothyroid: Code(s): E03.9 - Hypothyroidism, unspecified Plan: Continue with thyroid medication (7) Costochondritis: Code(s): M94.0 - Chondrocostal junction syndrome [Tietze] Plan: reassurance Coding Level of Care Code Est Pt Level 4 (70368) Diagnoses Mild intermittent asthma without complication J45.20 Asthma severity: mild Asthma persistence: intermittent Asthma complication type: uncomplicated Essential hypertension I10 Hypertension type: essential hypertension Hypercholesterolemia E78.00 History of prostate cancer Z85.46 Alzheimer's dementia with behavioral disturbance, unspecified timing of dementia onset G30.9; F02.81 Dementia type: Alzheimer's Alzheimer's disease onset: unspecified onset Dementia behavioral disturbance: with behavioral disturbance Hypothyroid E03.9 Costochondritis M94.0
== END 2023-06-01 10:47 | disposition home or self-care (01) ==
PROVIDERS: PCP Internal Medicine; Visit Provider Internal Medicine
DX: J45.20 Mild intermittent asthma, uncomplicated (principal); G30.9 Alzheimer's disease, unspecified; F02.818 Dementia in other diseases classified elsewhere, unspecified severity, with other behavioral disturbance; I10 Essential (primary) hypertension; E78.00 Pure hypercholesterolemia, unspecified; Z85.46 Personal history of malignant neoplasm of prostate; E03.9 Hypothyroidism, unspecified; M94.0 Chondrocostal junction syndrome [Tietze]
CPT/HCPCS: 99214

== ENCOUNTER 2023-08-31 07:58 | Outpatient (REF) | payer MEDICARE, MEDICAID, SELFPAY ==
[2023-08-31 08:12] LABS: MANUAL DIFF FLAG NO
[2023-08-31 08:47] LABS: Basophils Absolute Auto 0.1 X10*3/uL (0.0-0.2); Basophils Percent Auto 0.7 % (0-2); Eosinophils Absolute Auto 0.4 X10*3/uL (0.0-0.4); Eosinophils Percent Auto 5.4 % (0-4); Hematocrit 42.1 % (42.0-52.0); Hemoglobin 14.1 g/dl (14.0-18.0); Imm Gran Abs Auto 0.03 X10*3/uL (0.00-0.03); Imm Gran Pct Auto 0.4 % (0.0-0.4); Lymphocytes Absolute Auto 2.7 X10*3/uL (1.2-4.9); Mean Corpuscular HGB Conc 33.5 g/dl (31.0-36.0); Mean Corpuscular Hemoglobin 30.1 pg (27.0-33.0); Mean Platelet Volume 9.1 fL (9.4-12.4); Monocytes Absolute Auto 0.5 X10*3/uL (0.1-1.2); Monocytes Percent Auto 6.6 % (2-11); Neutrophils Absolute Auto 3.6 x10*3/uL (2.0-8.3); Neutrophils Percent Auto 49.9 % (45-73); Platelet Count 333 X10*3/uL (160-400); Red Blood Count 4.68 X10*6/uL (4.60-5.80); Red Cell Distribution Width 12.6 % (11.0-16.0); White Blood Count 7.2 X10*3/uL (4.8-10.8)
[2023-08-31 08:55] LABS: Appearance Urine Clear; Color Urine Yellow; Glucose Urine UA Negative (Negative); Leukocyte Esterase Urine Negative (Negative); Nitrite Urine Negative (Negative); PH 6.5 (5.0-9.0); Urine Blood Negative (Negative); Urine Ketones Negative (Negative); Urine Protein Negative (Neg-Trace)
[2023-08-31 09:04] LABS: Bacteria Urine None Seen (None Seen); Hyaline Casts Urine 0-2 /LPF (0-2); RBC Urine 0-2 /HPF (0-2); Squamous Epithelial Cell Urine 0-2 /HPF (0-2); WBC Urine 0-5 /HPF (0-5)
[2023-08-31 11:03] LABS: Alanine Aminotransferase 23 U/L (0-40); Albumin Level 4.5 g/dL (3.5-5.0); Alkaline Phosphatase 83 U/L (39-117); Anion Gap 12 (12-20); Aspartate Amino Transferase 17 U/L (5-37); Bilirubin Total 0.5 mg/dL (0.0-1.0); Blood Urea Nitrogen 12 mg/dL (9-16); Calcium 9.8 mg/dL (8.4-10.2); Carbon Dioxide 28 mmol/L (22-29); Chloride 102 mmol/L (96-108); Estimated Glomerular Filt Rate > 60; Glucose Random 113 mg/dL (60-115); Potassium 4.1 mmol/L (3.3-5.1); Sodium 138 mmol/L (135-145)
[2023-08-31 11:31] LABS: Thyroid Stimulating Hormone 2.57 uIU/mL (0.32-4.0)
== END 2023-08-31 07:59 | disposition home or self-care (01) ==
LOC: HO.LAB 07:58
PROVIDERS: PCP Internal Medicine; Visit Provider Internal Medicine
DX: G25.2 Other specified forms of tremor (principal)
CPT/HCPCS: 36415; 80053; 81001; 84439; 84443; 85025

== ENCOUNTER 2023-09-12 11:20 | Outpatient (AMB) | payer MEDICARE, MEDICAID, SELFPAY ==
[2023-09-12 11:21] VITALS: BP 110/76; PULSE 53; O2SAT 96; BMI 24.9
--- NOTE | 2023-09-12 11:21 | A.OFFPC_ITS ---
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 Allergies SEASONAL ALLERGIES Allergy (Mild, Uncoded 09/12/23 11:21) Itchy Eyes Medication List - Last Reconciled 09/12/23 by Bruce Acosta MD albuterol sulfate 90 mcg/actuation 2 puffs inhalation Q4H PRN atorvastatin 20 mg PO DAILY 90 days capsaicin 0.025% 1 appl topical TID fluticasone propionate 50 mcg/actuation (Flonase Allergy Relief) 2 sprays intranasal DAILY hydrocodone-acetaminophen 5-325 mg 1 tab PO Q6H PRN levothyroxine 112 mcg PO DAILY 30 days lisinopril 5 mg PO DAILY multivitamin 1 tab PO DAILY Tobacco use date assessed: 09/12/23 Fall risk assessment: No Falls in past year Last assessed Fall Risk: 09/12/23 Dental Screening Dental Screen Date: 09/12/23 HPI syncope HPI Details 63-year-old male with a history of asthm a hypertension hypercholesterolemia prostate cancer dementia hypothyroidism last seen in May 2023. Patient's colonoscopy is up-to-date August 2020. complains of shaking but having palpitations. concern on bradycardia PFSH Medical History Vision changes Dementia History of prostate cancer Hypercholesterolemia Allergic rhinitis Hypertension Asthma Hypothyroid Surgical History History of facial surgery History of inguinal hernia repair SAH (subarachnoid hemorrhage) History of prostate surgery Family History Father No problems noted. Mother No problems noted. Social History Household Members: Spouse Housing: House Alcohol intake: never Patient Tobacco Use Status: Never used Tobacco e-Cigarette/Vaping Use: Never Used Second Hand Smoke Exposure: No service: No Current occupational status: retired Cognitive needs: No Hearing needs: No Vision needs: No Questionnaire PHQ-9 Over the last 2 weeks, how often have you been bothered by any of the following problems? 1. Little interest or pleasure in doing things: several days 2. Feeling down, depressed, or hopeless: several days 3. Trouble falling or staying asleep, or sleeping too much: more than half the days 4. Feeling tired or having little energy: several days 5. Poor appetite or overeating: several days 6. Feeling bad about yourself - or that you are a failure or have let yourself or your family down: several days 7. Trouble concentrating on things, such as reading the newspaper or watching television: several days 8. Moving or speaking so slowly that other people could have noticed. Or the opposite - being so fidgety or restless that you have been moving around a lot more than usual: more than half the days 9. Thoughts that you would be better off or of hurting yourself in some way: not at all Total score: 10 Depression Screening Interpretation: Positive Depression Screening Done: Yes Source: Developed by Drs. Rosalino Reilly, Kiya Munoz, Manny Palmer and colleagues, with an educational mj from [employer]. Thrive Questionnaire Date Thrive assessed: 06/01/23 I am a: Patient What is your living situation today?: I have a steady place to live Within the past 12 months, did the food you bought not last and you didn't have the money to get more?: Never true Within the past 12 months, did you worry whether your food would run out before you got money to buy more?: Never true Do you have trouble paying for medicines?: No Do you have trouble getting transportation to medical appointments?: No Do you have trouble paying your heating and electricity bill?: No Do you have trouble taking care of your child, family member or friend?: No Do you have trouble with day-to-day activities such as bathing, preparing meals, shopping, managing finances, etc.?: No Are you currently unemployed and looking for a job?: No Are you interested in more education?: No THRIVE Score: 0 AUDIT C Alcohol Use Questionnaire (AUDIT-C) 1. How often do you have a drink containing alcohol?: Never 3. How often do you have six or more drinks on one occasion?: Never Total Score: 0 JACOB-7 AMB Questionnaire JACOB-7 Date JACOB - 7 assessed: 06/01/23 Source: Developed by Drs. Rosalino Reilly, Kiya Munoz, Manny Palmer and colleagues, with an educational mj from [employer]. Physical exam (Primary Care) Vital Signs: Last Vital Signs Pulse 53 09/12/23 11:21 BP 130/80 09/12/23 11:38 Pulse Ox 96 09/12/23 11:21 Oxygen Delivery Method Room Air 09/12/23 11:21 BMI result Body Mass Index 24.9 Tobacco/Smoking Status: Tobacco use Status Tobacco use date assessed 09/12/23 09/12/23 11:27 Patient Tobacco Use Status Never used Tobacco 09/12/23 11:27 e-Cigarette/Vaping Use Never Used 09/12/23 11:27 PHQ-9: PHQ-9 Score PHQ-9: Total score 10 09/12/23 11:37 Depression Screening Interpretation: Positive Thrive Assessment: Date of Thrive Assessment Date Thrive assessed 06/01/23 09/12/23 11:27 Const General: alert; No acute distress Eyes Conjunctivae: conjunctivae normal Resp Auscultation: clear to auscultation bilaterally Cardio Rate: regular rate Rhythm: regular rhythm GI Inspection: Yes normal to inspection Extrem General: Yes normal to inspection and No edema Assessment and Plan Assessment & Plan (1) Hypothyroid: Code(s): E03.9 - Hypothyroidism, unspecified Plan: Continue with thyroid medication (2) Asthma: Code(s): J45.909 - Unspecified asthma, uncomplicated Qualifiers: Asthma complication type: uncomplicated Asthma persistence: intermittent Asthma severity: mild Qualified Code(s): J45.20 - Mild intermittent asthma, uncomplicated Plan: Continue with the inhaler as needed (3) Hypertension: Code(s): I10 - Essential (primary) hypertension Qualifiers: Hypertension type: essential hypertension Qualified Code(s): I10 - Essential (primary) hypertension Plan: Continue with blood pressure medication. Decrease salt intake and exercise takes atenolol 25 mg once a day blood pressure has been stable but notes bradycardia ? syncope. advised to stop atenolol and chnage to lisinopril (4) Hypercholesterolemia: Code(s): E78.00 - Pure hypercholesterolemia, unspecified Plan: Avoid fried foods, chicken skin, eggs, butter margarine, pastries and meat. Be it pork or beef they have a lot of cholesterol LDL goal of less than 130 and triglyceride of less than 150. May 2022 last blood work. (5) History of prostate cancer: Comment: September 2012 Code(s): Z85.46 - Personal history of malignant neoplasm of prostate Plan: Monitoring PSA. (6) Dementia: Comment: Two thousand eighteen Code(s): F03.90 - Unspecified dementia, unspecified severity, without behavioral disturbance, psychotic disturbance, mood disturbance, and anxiety Qualifiers: Alzheimer's disease onset: unspecified onset Dementia behavioral disturbance: with behavioral disturbance Dementia type: Alzheimer's Qualified Code(s): G30.9 - Alzheimer's disease, unspecified; F02.81 - Dementia in other diseases classified elsewhere with behavioral disturbance Plan: Conservative management. (7) Coarse tremors: Code(s): G25.2 - Other specified forms of tremor Plan: loosk like essential tremors but will refer to neurology Orders: Referrals Neurology Referral G25.2 - Other specified forms of tremor Medications: New lisinopril 5 mg PO DAILY 30 tabs 2RF I10 - Essential (primary) hypertension Refilled fluticasone propionate 50 mcg/actuation (Flonase Allergy Relief) administer into each nostril 2 sprays intranasal DAILY 16 grams 8RF J30.9 - Allergic rhinitis, unspecified Discontinued atenolol Discontinued Reason: Doctor's Order 25 mg PO DAILY 90 tabs 2RF Coding Level of Care Code Est Pt Level 4 (98202) Diagnoses Hypothyroid E03.9 Mild intermittent asthma without complication J45.20 Asthma complication type: uncomplicated Asthma persistence: intermittent Asthma severity: mild Essential hypertension I10 Hypertension type: essential hypertension Hypercholesterolemia E78.00 History of prostate cancer Z85.46 Alzheimer's dementia with behavioral disturbance, unspecified timing of dementia onset G30.9; F02.81 Alzheimer's disease onset: unspecified onset Dementia behavioral disturbance: with behavioral disturbance Dementia type: Alzheimer's Coarse tremors G25.2
[2023-09-12 11:38] VITALS: BP 130/80
== END 2023-09-12 11:59 | disposition home or self-care (01) ==
PROVIDERS: PCP Internal Medicine; Visit Provider Internal Medicine
DX: E03.9 Hypothyroidism, unspecified (principal); J45.20 Mild intermittent asthma, uncomplicated; G30.9 Alzheimer's disease, unspecified; F02.818 Dementia in other diseases classified elsewhere, unspecified severity, with other behavioral disturbance; I10 Essential (primary) hypertension; E78.00 Pure hypercholesterolemia, unspecified; Z85.46 Personal history of malignant neoplasm of prostate; G25.2 Other specified forms of tremor
CPT/HCPCS: 99214

== ENCOUNTER 2024-01-17 11:09 | Outpatient (REF) | payer MEDICARE, MEDICAID, SELFPAY | END 2024-01-17 11:10 | disposition home or self-care (01) | LOC: HO.LAB 11:09 | PROVIDERS: PCP Internal Medicine; Visit Provider Internal Medicine | DX: Z13.89 Encounter for screening for other disorder (principal) ==

== ENCOUNTER 2024-01-23 14:30 | Outpatient (AMB) | payer MEDICARE, MEDICAID, SELFPAY ==
[2024-01-23 14:31] VITALS: BP 116/74; PULSE 59; O2SAT 96; BMI 24.7
--- NOTE | 2024-01-23 14:31 | MHC.PC.OV ---
Vital Signs 01/23/24 14:31 Height 5 ft 7 in Weight 158 lb BMI 24.7 BP 116/74 Blood Pressure Location Lt brachial Position Sitting Pulse 59 Pulse Source Pulse Oximeter Pulse Oximetry (%) 96 Oxygen Delivery Method Room Air Intake Visit Reasons: tremors, HTN Manager Chinese Required: No Accompanied by: Self / Same As Patient Allergies SEASONAL ALLERGIES Allergy (Mild, Uncoded 01/23/24 14:32) Itchy Eyes Tobacco use date assessed: 09/12/23 Fall risk assessment: 2 + Falls in past year (Passed out twice, he thinks its from low blood pressure.) Last assessed Fall Risk: 01/23/24 Dental Screening Dental Screen Date: 09/12/23 HPI tremors, HTN HPI Details 63-year-old male with hypothyroid hypertension hypercholesterolemia history of prostate cancer and dementia coming in for follow-up. August last seen. Patient is up-to-date with Gastroenterology colonoscopy August 2020. Received dose in 01/03/2024 loss of consciousness/syncopal episode patient was working in the heat and getting dehydration. [facility] Medical History Vision changes Dementia History of prostate cancer Hypercholesterolemia Allergic rhinitis Hypertension Asthma Hypothyroid Surgical History History of facial surgery History of inguinal hernia repair SAH (subarachnoid hemorrhage) History of prostate surgery Family History Father No problems noted. Mother No problems noted. Social History Household Members: Spouse Housing: House Alcohol intake: never Patient Tobacco Use Status: Never used Tobacco Tobacco use type: Cigarette e-Cigarette/Vaping Use: Never Used Second Hand Smoke Exposure: No service: No Current occupational status: retired Cognitive needs: No Hearing needs: No Vision needs: No Questionnaire PHQ-9 Over the last 2 weeks, how often have you been bothered by any of the following problems? 1. Little interest or pleasure in doing things: several days 2. Feeling down, depressed, or hopeless: several days 3. Trouble falling or staying asleep, or sleeping too much: more than half the days 4. Feeling tired or having little energy: several days 5. Poor appetite or overeating: several days 6. Feeling bad about yourself - or that you are a failure or have let yourself or your family down: several days 7. Trouble concentrating on things, such as reading the newspaper or watching television: several days 8. Moving or speaking so slowly that other people could have noticed. Or the opposite - being so fidgety or restless that you have been moving around a lot more than usual: more than half the days 9. Thoughts that you would be better off or of hurting yourself in some way: not at all Total score: 10 Depression Screening Interpretation: Positive Depression Screening Done: Yes Source: Developed by Drs. Rosalino Reilly, Kiya Munoz, Manny Palmer and colleagues, with an educational mj from [employer]. Thrive Questionnaire Date Thrive assessed: 06/01/23 AUDIT C Alcohol Use Questionnaire (AUDIT-C) 1. How often do you have a drink containing alcohol?: Never 3. How often do you have six or more drinks on one occasion?: Never Total Score: 0 JACOB-7 AMB Questionnaire JACOB-7 Date JACOB - 7 assessed: 06/01/23 Source: Developed by Drs. Rosalino Reilly, Kiya Munoz, Manny Palmer and colleagues, with an educational mj from [employer]. Physical exam (Primary Care) Vital Signs: Last Vital Signs Pulse 59 01/23/24 14:31 BP 116/74 01/23/24 14:31 Pulse Ox 96 01/23/24 14:31 Oxygen Delivery Method Room Air 01/23/24 14:31 BMI result Body Mass Index 24.7 Tobacco/Smoking Status: Tobacco use Status Tobacco use date assessed 09/12/23 01/23/24 14:38 Patient Tobacco Use Status Never used Tobacco 01/23/24 14:38 Tobacco use type Cigarette 01/23/24 14:38 e-Cigarette/Vaping Use Never Used 01/23/24 14:38 PHQ-9: PHQ-9 Score PHQ-9: Total score 10 01/23/24 14:38 Depression Screening Interpretation: Positive Thrive Assessment: Date of Thrive Assessment Date Thrive assessed 06/01/23 01/23/24 14:38 Const General: alert; No acute distress Eyes Conjunctivae: conjunctivae normal Resp Auscultation: clear to auscultation bilaterally Cardio Rate: regular rate Rhythm: regular rhythm GI Inspection: Yes normal to inspection Extrem General: Yes normal to inspection and No edema Assessment and Plan Assessment & Plan (1) Syncope: Code(s): R55 - Syncope and collapse Plan: Diagnosis of syncope due to dehydration patient is aware to keep well hydrated. (2) Dehydration: Code(s): E86.0 - Dehydration Plan: Keep well hydrated (3) Hypothyroid: Code(s): E03.9 - Hypothyroidism, unspecified Plan: On thyroid medication will continue to monitor. (4) Hypertension: Code(s): I10 - Essential (primary) hypertension Qualifiers: Hypertension type: essential hypertension Qualified Code(s): I10 - Essential (primary) hypertension Plan: Continue with blood pressure medication. Decrease salt intake and exercise. Discussed that this will become a problem if the patient gets dehydrated.monitor the BP and record (5) Allergic rhinitis: Code(s): J30.9 - Allergic rhinitis, unspecified (6) Asthma: Code(s): J45.909 - Unspecified asthma, uncomplicated Qualifiers: Asthma severity: mild Asthma persistence: intermittent Asthma complication type: uncomplicated Qualified Code(s): J45.20 - Mild intermittent asthma, uncomplicated (7) Eczema: Code(s): L30.9 - Dermatitis, unspecified Medications: New fexofenadine (Sabrina Allergy) 180 mg PO DAILY 30 tabs 10RF J30.9 - Allergic rhinitis, unspecified triamcinolone acetonide 0.5% 1 appl topical BID 30 grams 0RF L30.9 - Dermatitis, unspecified blood pressure monitor (Blood Pressure Kit) As directed 1 ea 0RF I10 - Essential (primary) hypertension Refilled albuterol sulfate 90 mcg/actuation 8.5gm 200puffs 2 puffs inhalation Q4H PRN 8.5 grams 0RF shortness of breath or wheezing K52.9 - Noninfective gastroenteritis and colitis, unspecified Discontinued hydrocodone-acetaminophen 5-325 mg partial fill okay; Partial Fill upon patient request. Discontinued Reason: Patient Completed Course 1 tab PO Q6H PRN 10 tabs 0RF pain Coding Level of Care Code Est Pt Level 4 (68626) Diagnoses Syncope R55 Dehydration E86.0 Hypothyroid E03.9 Essential hypertension I10 Hypertension type: essential hypertension Allergic rhinitis J30.9 Mild intermittent asthma without complication J45.20 Asthma severity: mild Asthma persistence: intermittent Asthma complication type: uncomplicated Eczema L30.9
== END 2024-01-23 15:17 | disposition home or self-care (01) ==
PROVIDERS: PCP Internal Medicine; Visit Provider Internal Medicine
DX: R55 Syncope and collapse (principal); E86.0 Dehydration; E03.9 Hypothyroidism, unspecified; I10 Essential (primary) hypertension; J30.9 Allergic rhinitis, unspecified; J45.20 Mild intermittent asthma, uncomplicated; L30.9 Dermatitis, unspecified
CPT/HCPCS: 99214

== ENCOUNTER 2024-04-02 10:12 | Outpatient (AMB) | payer MEDICARE, MEDICAID, SELFPAY ==
[2024-04-02 10:31] VITALS: BP 118/72; BMI 24.1
--- NOTE | 2024-04-02 10:31 | A.OFFVIS_ITS ---
Vital Signs 04/02/24 10:31 Height 5 ft 7 in Weight 154 lb BMI 24.1 BP 118/72 Blood Pressure Location Rt brachial Position Sitting Intake Visit Reasons: I-LAP HAND TOOL:Other Spec. forms of tremor (09/13LVM+LTR) Intake Note: Patient presents for tremors Allergies SEASONAL ALLERGIES Allergy (Mild, Uncoded 04/02/24 10:34) Itchy Eyes Medication List - Last Reconciled 04/02/24 by Tali Alegre MD albuterol sulfate 90 mcg/actuation 2 puffs inhalation Q4H PRN atorvastatin 20 mg PO DAILY 90 days blood pressure monitor (Blood Pressure Kit) As directed capsaicin 0.025% 1 appl topical TID fexofenadine (Sabrina Allergy) 180 mg PO DAILY fluticasone propionate 50 mcg/actuation (Flonase Allergy Relief) 2 sprays intranasal DAILY levothyroxine 112 mcg PO DAILY 90 days lisinopril 5 mg PO DAILY multivitamin 1 tab PO DAILY triamcinolone acetonide 0.5% 1 appl topical BID HPI Comments Details: 63y/o Right handed male comes for evaluation of tremors. A [employer] disease case manager rn - Haydee Yeager helped with todays history - [id number]. He is accompanied by his . About 6 mths ago he started noticing action tremors which fluctuates in intensity.The tremors increases with anxiety , stress, cold or hot weather. ADLS affected - writing-has difficulty- when he writes the fingers cramps up dressing-trouble brushing teeth shower-ok eating-trouble using chopsticks drinking liquids-difficult speech-ok FH/O tremors- none He has discomfort when his hands cramps up He has neck pain and tightness. [facility] Medical History Vision changes Dementia History of prostate cancer Hypercholesterolemia Allergic rhinitis Hypertension Asthma Hypothyroid Surgical History History of facial surgery History of inguinal hernia repair SAH (subarachnoid hemorrhage) History of prostate surgery Family History Father No problems noted. Mother No problems noted. Social History Household Members: Spouse Housing: House Alcohol intake: never Patient Tobacco Use Status: Never used Tobacco Tobacco use type: Cigarette e-Cigarette/Vaping Use: Never Used Second Hand Smoke Exposure: No service: No Current occupational status: retired Cognitive needs: No Hearing needs: No Vision needs: No Physical Exam Vital Signs: Last Vital Signs BP 118/72 04/02/24 10:31 BMI result Body Mass Index 24.1 Const General: cooperative, healthy appearing and comfortable Nutritional Appearance: average body habitus Orientation/consciousness: patient oriented x3 Limitations: no limitations HEENT Head: Yes normal to inspection Eyes Pupils: Equal, round and reactive pupils present Neuro Other: very mild action tremors General: patient oriented x3, gait normal, tone normal, moves all extremities and no focal motor deficits Cranial nerves: Yes Facial sensation intact/muscles of mastication intact, Yes Equal, round and reactive pupils present, Yes Bilaterally intact EOM present, Yes Nystagmus not present, Yes Normal facial strength present, Yes Midline tongue present, Yes Symmetric palate elevation present and Yes Ability to bilaterally elevate shoulders present Cognition (Neuro): normal cognition Gait exam (Neuro): Normal gait present Motor exam (neuro): 5/5 motor strength present throughout and Normal motor muscle tone present throughout Deep tendon reflexes (DTR's): Right triceps reflex intensity grade: 1+, Left triceps reflex intensity grade: 1+, Rt Biceps (C5, C6): 1+, Left biceps reflex intensity grade: 1+, Right brachioradialis reflex intensity grade: 1+, Left brachioradialis reflex intensity grade: 1+, Right patellar reflex intensity grade: 1+ and Left patellar reflex intensity grade: 1+ Coordination: [id number] test normal Assessment & Plan Assessment & Plan (1) Coarse tremors: Code(s): G25.2 - Other specified forms of tremor Category: Medical Plan Very mild tremors I will trial him on propranalol 10mg bid as needed . Patient ahs mild asthma - suggested to avoid propranolol during his asthma attacks. Medications: New propranolol 10 mg PO BID PRN 60 tabs 6RF tremors Coding Level of Care Code New Pt Level 4 (36760) Diagnoses Coarse tremors G25.2
== END 2024-04-02 11:15 | disposition home or self-care (01) ==
PROVIDERS: PCP Internal Medicine; Visit Provider Psychiatry & Neurology Neurology
DX: G25.2 Other specified forms of tremor (principal)
CPT/HCPCS: 99204

== ENCOUNTER → 2024-04-02 10:12 | Outpatient (BNVA) | payer MEDICARE, MEDICAID, SELFPAY | PROVIDERS: PCP Internal Medicine; Visit Provider Psychiatry & Neurology Neurology | DX: G25.2 Other specified forms of tremor (principal) | CPT/HCPCS: 99202 ==

== ENCOUNTER 2024-05-01 11:15 | Outpatient (REF) | payer MEDICARE, MEDICAID, SELFPAY | END 2024-05-01 11:16 | disposition home or self-care (01) | LOC: HO.LAB 11:15 | PROVIDERS: PCP Internal Medicine; Visit Provider Internal Medicine | DX: Z13.89 Encounter for screening for other disorder (principal) ==

== ENCOUNTER 2024-05-04 14:17 | Outpatient (AMB) | payer MEDICARE, MEDICAID, SELFPAY ==
[2024-05-04 14:20] VITALS: BP 134/82; PULSE 59; O2SAT 97; BMI 24.7
--- NOTE | 2024-05-04 14:20 | MHC.PC.OV ---
Vital Signs 05/04/24 14:20 Height 5 ft 7 in Weight 157 lb 8 oz BMI 24.7 BP 134/82 Blood Pressure Location Lt brachial Position Sitting Pulse 59 Pulse Source Pulse Oximeter Pulse Oximetry (%) 97 Oxygen Delivery Method Room Air Intake Visit Reasons: HTN, dehydration Allergies SEASONAL ALLERGIES Allergy (Mild, Uncoded 05/04/24 14:24) Itchy Eyes Tobacco use date assessed: 05/04/24 Fall risk assessment: 2 + Falls in past year Last assessed Fall Risk: 05/04/24 Dental Screening Dental Screen Date: 05/04/24 Did you have a dental visit in the last 12 months?: Yes Did you have a dental problem in the last 6 months where you did not have access to dental care?: No Was dental information given to patient?: Patient has dentist HPI HTN, dehydration HPI Details The patient is a 63-year-old male presenting with tremors as the primary reason for this visit. 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 Neurology assessments have not found a serious underlying condition such as Parkinson's disease, and propranolol was prescribed, though it has not alleviated the tremors significantly. Additionally, the patient reports stiffness and sticking of the fingers, identified as trigger finger, where the fingers sometimes become rigid and painful when bent. The condition is reportedly aggravated by activities such as using his iPad and gripping items tightly. The patient also mentioned a desire for an ophthalmological evaluation due to not having his eyes checked for several years, despite no specific current vision problems noted. His asthma management includes the use of medications; however, the conversation indicated a need for a fresh inhaler due to excessive dosing of existing nasal spray which does not meet his current needs. [facility] Medical History Vision changes Dementia History of prostate cancer Hypercholesterolemia Allergic rhinitis Hypertension Asthma Hypothyroid Surgical History History of facial surgery History of inguinal hernia repair SAH (subarachnoid hemorrhage) History of prostate surgery Family History Father No problems noted. Mother No problems noted. Social History Household Members: Spouse Housing: House Alcohol intake: never Patient Tobacco Use Status: Never used Tobacco Tobacco use type: Cigarette e-Cigarette/Vaping Use: Never Used Second Hand Smoke Exposure: No service: No Current occupational status: retired Cognitive needs: No Hearing needs: No Vision needs: No Questionnaire Thrive Questionnaire Date Thrive assessed: 06/01/23 JACOB-7 AMB Questionnaire JACOB-7 Date JACOB - 7 assessed: 06/01/23 Source: Developed by Drs. Rosalino Reilly, Kiya Munoz, Manny Palmer and colleagues, with an educational mj from [employer]. Physical exam (Primary Care) Vital Signs: Last Vital Signs Pulse 59 05/04/24 14:20 BP 134/82 05/04/24 14:20 Pulse Ox 97 05/04/24 14:20 Oxygen Delivery Method Room Air 05/04/24 14:20 BMI result Body Mass Index 24.7 Tobacco/Smoking Status: Tobacco use Status Tobacco use date assessed 05/04/24 05/04/24 14:26 Patient Tobacco Use Status Never used Tobacco 05/04/24 14:26 Tobacco use type Cigarette 05/04/24 14:26 e-Cigarette/Vaping Use Never Used 05/04/24 14:26 Thrive Assessment: Date of Thrive Assessment Date Thrive assessed 06/01/23 05/04/24 14:26 Const General: alert; No acute distress Eyes Conjunctivae: conjunctivae normal Resp Auscultation: clear to auscultation bilaterally Cardio Rate: regular rate Rhythm: regular rhythm GI Inspection: Yes normal to inspection Extrem General: Yes normal to inspection and No edema Office Procedures Flu Questionnaire Does the patient have a severe egg allergy?: No Does the patient have severe life threatening allergies?: No Does the patient have a fever or illness today?: No Has the patient ever had Guillain-Alsen Syndrome?: No Has the patient ever had any past reaction to a flu shot?: No Immunizations Fluarix Triv 8590-1631 (PF) 45 mcg (15 mcg x 3)/0.5 mL IM syringe Performing Provider: Bruce Acosta MD [facility] Administered by: MARIA M Roberts on 05/04/24 15:27 Dose Route Admin Location Dispensed Lot Number Expiration Date [facility] [employer] 0.5 mL IM Left Deltoid 0.5 mL [id number] 11/12/24 [id number] Popular Pays VIS Given Date VIS Provided VIS Publication Date 05/04/24 Single Vaccine 20 Eligibility Eligibility Date Funding Source Not [facility] Eligible 05/04/24 Private Coding Level of Care Code Est Pt Level 4 (51931) Diagnoses Coarse tremors G25.2 Hypothyroid E03.9 Alzheimer's dementia with behavioral disturbance, unspecified timing of dementia onset G30.9; F02.81 Dementia type: Alzheimer's Alzheimer's disease onset: unspecified onset Dementia behavioral disturbance: with behavioral disturbance History of prostate cancer Z85.46 Essential hypertension I10 Hypertension type: essential hypertension Hypercholesterolemia E78.00 Impaired fasting blood sugar R73.01 Trigger finger M65.30 Vision changes H53.9 Assessment & Plan Assessment & Plan (1) Coarse tremors: Code(s): G25.2 - Other specified forms of tremor Category: Medical (2) Hypothyroid: Code(s): E03.9 - Hypothyroidism, unspecified Category: Medical (3) Dementia: Comment: Two thousand eighteen Code(s): F03.90 - Unspecified dementia, unspecified severity, without behavioral disturbance, psychotic disturbance, mood disturbance, and anxiety Category: Medical Qualifiers: Dementia type: Alzheimer's Alzheimer's disease onset: unspecified onset Dementia behavioral disturbance: with behavioral disturbance Qualified Code(s): G30.9 - Alzheimer's disease, unspecified; F02.81 - Dementia in other diseases classified elsewhere with behavioral disturbance (4) History of prostate cancer: Comment: September 2012 Code(s): Z85.46 - Personal history of malignant neoplasm of prostate Category: Medical (5) Hypertension: Code(s): I10 - Essential (primary) hypertension Category: Medical Qualifiers: Hypertension type: essential hypertension Qualified Code(s): I10 - Essential (primary) hypertension (6) Hypercholesterolemia: Code(s): E78.00 - Pure hypercholesterolemia, unspecified Category: Medical (7) Impaired fasting blood sugar: Code(s): R73.01 - Impaired fasting glucose Category: Medical (8) Trigger finger: Code(s): M65.30 - Trigger finger, unspecified finger Category: Medical (9) Vision changes: Code(s): H53.9 - Unspecified visual disturbance Category: Medical Plan - Increase propranolol dosage cautiously to further evaluate the response for essential tremor management. - Implement conservative management for trigger finger including the use of splinting. Consider referral to orthopedics if symptoms persist or worsen for potential corticosteroid injection. - Refer to an rn perioperative for comprehensive eye examination as a preventive measure due to a lack of recent eye evaluations. - Prescribe an appropriate inhaler for asthma management, ensuring alignment with his current therapeutic requirements. - Administer flu vaccination given the patient's age and onset of flu season. Orders: Orders Free T4 (Free Thyroxine) Today R73.01 - Impaired fasting glucose Hemoglobin A1c Today R73.01 - Impaired fasting glucose Complete Blood Count Auto Diff Today R73.01 - Impaired fasting glucose Comprehensive Met. Panel Today R73.01 - Impaired fasting glucose Thyroid Stimulating Hormone Today R73.01 - Impaired fasting glucose Lipid Panel Today E78.00 - Pure hypercholesterolemia, unspecified, R73.01 - Impaired fasting glucose Vitamin B12 and Folate Today R73.01 - Impaired fasting glucose Prostate Specific Antigen Scr Today R73.01 - Impaired fasting glucose Referrals Ophthalmology Referral H53.9 - Unspecified visual disturbance Medications: Refilled albuterol sulfate 90 mcg/actuation 8.5gm 200puffs 2 puffs inhalation Q4H PRN 8.5 grams 0RF shortness of breath or wheezing K52.9 - Noninfective gastroenteritis and colitis, unspecified fluticasone propionate 50 mcg/actuation (Flonase Allergy Relief) administer into each nostril 2 sprays intranasal DAILY 16 grams 8RF J30.9 - Allergic rhinitis, unspecified
== END 2024-05-04 15:21 | disposition home or self-care (01) ==
PROVIDERS: PCP Internal Medicine; Visit Provider Internal Medicine
DX: G25.2 Other specified forms of tremor (principal); E03.9 Hypothyroidism, unspecified; G30.9 Alzheimer's disease, unspecified; F02.818 Dementia in other diseases classified elsewhere, unspecified severity, with other behavioral disturbance; Z85.46 Personal history of malignant neoplasm of prostate; I10 Essential (primary) hypertension; E78.00 Pure hypercholesterolemia, unspecified; R73.01 Impaired fasting glucose; M65.30 Trigger finger, unspecified finger; H53.9 Unspecified visual disturbance; Z23 Encounter for immunization

== ENCOUNTER → 2024-05-04 14:17 | Outpatient (BNVA) | payer MEDICARE, MEDICAID, SELFPAY | PROVIDERS: PCP Internal Medicine; Visit Provider Internal Medicine | DX: I10 Essential (primary) hypertension (principal); G25.2 Other specified forms of tremor; E03.9 Hypothyroidism, unspecified; G30.9 Alzheimer's disease, unspecified; F02.818 Dementia in other diseases classified elsewhere, unspecified severity, with other behavioral disturbance; E78.00 Pure hypercholesterolemia, unspecified; R73.01 Impaired fasting glucose; M65.30 Trigger finger, unspecified finger; H53.9 Unspecified visual disturbance; J30.9 Allergic rhinitis, unspecified; Z23 Encounter for immunization; Z85.46 Personal history of malignant neoplasm of prostate | CPT/HCPCS: 90471; 90656; 99212 ==

== ENCOUNTER 2024-07-11 11:04 | Outpatient (REF) | payer MEDICARE, MEDICAID, SELFPAY ==
[2024-07-11 11:17] LABS: MANUAL DIFF FLAG NO
[2024-07-11 11:28] LABS: Basophils Percent Auto 0.9 % (0-2); Eosinophils Absolute Auto 0.2 X10*3/uL (0.0-0.4); Eosinophils Percent Auto 4.5 % (0-4); Hemoglobin 13.4 g/dl (14.0-18.0); Imm Gran Abs Auto 0.02 X10*3/uL (0.00-0.03); Imm Gran Pct Auto 0.4 % (0.0-0.4); Lymphocytes Absolute Auto 1.8 X10*3/uL (1.2-4.9); Lymphocytes Percent Auto 39.8 % (20-40); Mean Corpuscular HGB Conc 33.5 g/dl (31.0-36.0); Mean Corpuscular Hemoglobin 30.3 pg (27.0-33.0); Mean Corpuscular Volume 90.5 fL (80.0-98.0); Mean Platelet Volume 8.9 fL (9.4-12.4); Monocytes Absolute Auto 0.4 X10*3/uL (0.1-1.2); Monocytes Percent Auto 7.6 % (2-11); Neutrophils Absolute Auto 2.2 x10*3/uL (2.0-8.3); Neutrophils Percent Auto 46.8 % (45-73); Platelet Count 253 X10*3/uL (160-400); Red Blood Count 4.42 X10*6/uL (4.60-5.80); Red Cell Distribution Width 12.6 % (11.0-16.0); White Blood Count 4.6 X10*3/uL (4.8-10.8)
[2024-07-11 11:35] LABS: Estimated Average Glucose 131 mg/dL; Hemoglobin A1C 153.2908 umol/L; Hemoglobin A1c % 6.2 % (<6.0); Total Hemoglobin (HGBA1C) 3488.2428 umol/L
[2024-07-11 12:15] LABS: Alanine Aminotransferase 19 U/L (0-40); Albumin Level 4.2 g/dL (3.5-5.0); Anion Gap 10 (12-20); Aspartate Amino Transferase 23 U/L (5-37); Bilirubin Total 0.6 mg/dL (0.0-1.0); Blood Urea Nitrogen 13 mg/dL (9-16); Calcium 9.1 mg/dL (8.4-10.2); Carbon Dioxide 25 mmol/L (22-29); Chloride 108 mmol/L (96-108); Cholesterol 137 mg/dL (<200); Estimated Glomerular Filt Rate > 60; Glucose Random 110 mg/dL (60-115); HDL Cholesterol 43 mg/dL (>40); LDL Cholesterol Calculated 72 mg/dL (<100); Potassium 3.9 mmol/L (3.3-5.1); Sodium 139 mmol/L (135-145); Total Protein 7.5 g/dL (6.5-8.0); Triglycerides 110 mg/dL (<150)
[2024-07-11 12:28] LABS: Free T4 (Free Thyroxine) 1.07 ng/dL (0.71-1.85); Thyroid Stimulating Hormone 0.06 uIU/mL (0.32-4.0)
[2024-07-11 12:34] LABS: Prostate Specific Antigen Scr < 0.10 ng/mL (<0.05-4.0); Vitamin B12 528 pg/mL (200-900)
[2024-07-11 13:20] LABS: Folate 15.1 ng/mL (> or = 4.0)
[2024-07-11 13:31] LABS: Alkaline Phosphatase 64 U/L (39-117)
== END 2024-07-11 11:05 | disposition home or self-care (01) ==
LOC: HO.LAB 11:04
PROVIDERS: PCP Internal Medicine; Visit Provider Internal Medicine
DX: R73.01 Impaired fasting glucose (principal); E78.00 Pure hypercholesterolemia, unspecified; Z12.5 Encounter for screening for malignant neoplasm of prostate
CPT/HCPCS: 36415; 80053; 80061; 82607; 82746; 83036; 84153; 84439; 84443; 85025

== ENCOUNTER 2024-07-31 13:36 | Outpatient (AMB) | payer MEDICARE, MEDICAID, SELFPAY ==
[2024-07-31 13:40] VITALS: BP 112/62; PULSE 69; O2SAT 96; BMI 24.6
--- NOTE | 2024-07-31 13:40 | A.OFFPC_ITS ---
Vital Signs 07/31/24 13:40 Height 5 ft 7 in Weight 157 lb BMI 24.6 BP 112/62 Blood Pressure Location Lt brachial Position Sitting Pulse 69 Pulse Source Pulse Oximeter Pulse Oximetry (%) 96 Oxygen Delivery Method Room Air Intake Visit Reasons: Annual Exam Intake Note: Looking for a refill on inhaler. Allergies SEASONAL ALLERGIES Allergy (Mild, Uncoded 07/31/24 13:40) Itchy Eyes Medication List - Last Reconciled 07/31/24 by Bruce Acosta MD albuterol sulfate 90 mcg/actuation 2 puffs inhalation Q4H PRN atorvastatin 20 mg PO DAILY 90 days blood pressure monitor (Blood Pressure Kit) As directed capsaicin 0.025% 1 appl topical TID fexofenadine (Sabrina Allergy) 180 mg PO DAILY fluticasone propionate 50 mcg/actuation (Flonase Allergy Relief) 2 sprays intranasal DAILY levothyroxine 112 mcg PO DAILY 90 days lisinopril 5 mg PO DAILY multivitamin 1 tab PO DAILY propranolol 10 mg PO BID PRN triamcinolone acetonide 0.5% 1 appl topical BID Tobacco use date assessed: 07/31/24 Fall risk assessment: No Falls in past year Last assessed Fall Risk: 07/31/24 Dental Screening Dental Screen Date: 07/31/24 Did you have a dental visit in the last 12 months?: Yes Did you have a dental problem in the last 6 months where you did not have access to dental care?: No Was dental information given to patient?: Patient has dentist HPI Annual Exam HPI Details occ dii PFSH Medical History Vision changes Dementia History of prostate cancer Hypercholesterolemia Allergic rhinitis Hypertension Asthma Hypothyroid Surgical History History of facial surgery History of inguinal hernia repair SAH (subarachnoid hemorrhage) History of prostate surgery Family History Father No problems noted. Mother No problems noted. Social History Household Members: Spouse Housing: House Alcohol intake: never Patient Tobacco Use Status: Never used Tobacco Tobacco use type: Cigarette e-Cigarette/Vaping Use: Never Used Second Hand Smoke Exposure: No service: No Current occupational status: retired Cognitive needs: No Hearing needs: No Vision needs: No Questionnaire PHQ-9 Over the last 2 weeks, how often have you been bothered by any of the following problems? 1. Little interest or pleasure in doing things: not at all 2. Feeling down, depressed, or hopeless: not at all 3. Trouble falling or staying asleep, or sleeping too much: not at all 4. Feeling tired or having little energy: not at all 5. Poor appetite or overeating: not at all 6. Feeling bad about yourself - or that you are a failure or have let yourself or your family down: not at all 7. Trouble concentrating on things, such as reading the newspaper or watching television: not at all 8. Moving or speaking so slowly that other people could have noticed. Or the opposite - being so fidgety or restless that you have been moving around a lot more than usual: not at all 9. Thoughts that you would be better off or of hurting yourself in some way: not at all Total score: 0 Depression Screening Interpretation: Negative Depression Screening Done: Yes 55404 - PHQ-9 Billing: Yes Source: Developed by Drs. Rosalino Reilly, Kiya Munoz, Manny Palmer and colleagues, with an educational mj from [employer]. Thrive Questionnaire Date Thrive assessed: 07/31/24 I am a: Patient What is your living situation today?: I have a steady place to live Within the past 12 months, did the food you bought not last and you didn't have the money to get more?: Never true Within the past 12 months, did you worry whether your food would run out before you got money to buy more?: Never true Do you have trouble paying for medicines?: No Do you have trouble getting transportation to medical appointments?: No Do you have trouble paying your heating and electricity bill?: No Do you have trouble taking care of your child, family member or friend?: No Do you have trouble with day-to-day activities such as bathing, preparing meals, shopping, managing finances, etc.?: No Are you currently unemployed and looking for a job?: No Are you interested in more education?: No Please select the resources that you would like help with: None Currently or been in a relationship where the following occur: No concerns reported THRIVE Score: 0 AUDIT C Alcohol Use Questionnaire (AUDIT-C) 1. How often do you have a drink containing alcohol?: Never Total Score: 0 JACOB-7 AMB Questionnaire JACOB-7 Date JACOB - 7 assessed: 07/31/24 Feeling nervous, anxious, or on edge: 0 = Not at all Not being able to stop or control worryin = Not at all Worrying too much about different things: 0 = Not at all Trouble relaxin = Not at all Being so restless that it is hard to sit still: 0 = Not at all Becoming easily annoyed or irritable: 0 = Not at all Feeling afraid as if something awful might happen: 0 = Not at all Total JACOB-7 score (0-4 normal; 5-9 mild; 10-14 moderate; 15-21 severe): 0 Source: Developed by Drs. Rosalino Reilly, iKya Munoz, Manny Palmer and colleagues, with an educational mj from [employer]. JACOB-7 Assessment Billing JACOB-7 Assessment Tool: JACOB-7 Assessment 41803 Review of Systems Const Denies poor appetite and Denies weakness Eyes Denies no additional complaints ENT Reports Normal hearing present, Denies dizziness, Denies nasal congestion, Denies tinnitus and Denies sore throat Card Denies chest pain, Denies syncope, Denies rapid heart rate and Denies dyspnea Resp Denies cough and Denies dyspnea GI Denies change in stool character, Reports constipation, Denies diarrhea, Denies nausea and Denies vomiting Denies dysuria and Denies urinary frequency Neuro Reports Normal hearing present, Denies confusion, Denies dizziness, Denies syncope and Denies weakness Psych Denies confusion Physical exam (Primary Care) Vital Signs: Last Vital Signs Pulse 69 07/31/24 13:40 BP 112/62 07/31/24 13:40 Pulse Ox 96 07/31/24 13:40 Oxygen Delivery Method Room Air 07/31/24 13:40 BMI result Body Mass Index 24.6 Tobacco/Smoking Status: Tobacco use Status Tobacco use date assessed 07/31/24 07/31/24 13:42 Patient Tobacco Use Status Never used Tobacco 07/31/24 13:42 Tobacco use type Cigarette 07/31/24 13:42 e-Cigarette/Vaping Use Never Used 07/31/24 13:42 PHQ-9: PHQ-9 Score PHQ-9: Total score 0 07/31/24 14:01 Depression Screening Interpretation: Negative Thrive Assessment: Date of Thrive Assessment Date Thrive assessed 07/31/24 07/31/24 13:42 Currently or been in a relationship where the following occur: No concerns reported Const General: No confusion Orientation/consciousness: No confusion HENMT Head: Yes normocephalic Ears: external ears normal and TM's normal bilaterally Face and sinus: Yes normal facial exam Mouth: moist mucous membranes Throat: Yes tonsils normal Eyes Conjunctivae: conjunctivae normal Pupils: Equal, round and reactive pupils present and Pupil accommodation reflex normal Direct Ophthalmoscopy: normal light reflex Neck Neck: No lymphadenopathy Thyroid: Thyroid normal Chest Chest palpation & inspection: normal inspection of the chest Resp Effort & Inspection: normal respiratory effort and no audible wheezes Auscultation: clear to auscultation bilaterally, no crackles, no wheezes and lung sounds not diminished Cardio Rate: regular rate Rhythm: regular rhythm Peripheral pulses: radial pulses present and dorsalis pedis present GI Other: guaaic negative no prostate Palpation (GI): no masses Auscultation: normal bowel sounds and normoactive bowel sounds Skin General skin exam: no rashes or lesions noted Rashes: no rashes Neuro General: No confusion Cranial nerves: Yes Equal, round and reactive pupils present and Yes Normal hearing present Cognition (Neuro): normal cognition Gait exam (Neuro): Normal gait present Motor exam (neuro): 5/5 motor strength present throughout Deep tendon reflexes (DTR's): Right brachioradialis reflex intensity grade: 2+, Left brachioradialis reflex intensity grade: 2+, Right patellar reflex intensity grade: 2+ and Left patellar reflex intensity grade: 2+ Extrem General: No edema Coding Level of Care Code Est Pt Prev Care 40-64y(27238) Diagnoses Annual physical exam Z00.00 Essential hypertension I10 Hypertension type: essential hypertension Mild intermittent asthma without complication J45.20 Asthma complication type: uncomplicated Asthma persistence: intermittent Asthma severity: mild Hypercholesterolemia E78.00 History of prostate cancer Z85.46 Alzheimer's dementia with behavioral disturbance, unspecified timing of dementia onset G30.9; F02.81 Alzheimer's disease onset: unspecified onset Dementia behavioral disturbance: with behavioral disturbance Dementia type: Alzheimer's Hypothyroid E03.9 Impaired fasting blood sugar R73.01 Coarse tremors G25.2 Anemia D64.9 Additional Codes JACOB-7 Assessment Billing - JACOB-7 Assessment Tool: JACOB-7 Assessment 88080 ([id number]) PHQ-9 - 25735 - PHQ-9 Billing: Yes ([id number]) Assessment & Plan Assessment & Plan (1) Annual physical exam: Code(s): Z00.00 - Encounter for general adult medical examination without abnormal findings Category: Medical Plan: Patient is advised to eat healthy, keep well hydrated, keep active and have adequate sleep. (2) Hypertension: Code(s): I10 - Essential (primary) hypertension Category: Medical Qualifiers: Hypertension type: essential hypertension Qualified Code(s): I10 - Essential (primary) hypertension Plan: Continue with blood pressure medication. Decrease salt intake and exercise on lisinopril 5 mg once a day (3) Asthma: Code(s): J45.909 - Unspecified asthma, uncomplicated Category: Medical Qualifiers: Asthma complication type: uncomplicated Asthma persistence: intermittent Asthma severity: mild Qualified Code(s): J45.20 - Mild intermittent asthma, uncomplicated Plan: Continue with albuterol as needed (4) Hypercholesterolemia: Code(s): E78.00 - Pure hypercholesterolemia, unspecified Category: Medical Plan: Avoid fried foods, chicken skin, eggs, butter margarine, pastries and meat. Be it pork or beef they have a lot of cholesterol on atorvastatin 20 mg once a day (5) History of prostate cancer: Comment: September 2012 Code(s): Z85.46 - Personal history of malignant neoplasm of prostate Category: Medical Plan: Stable (6) Dementia: Comment: Two thousand eighteen Code(s): F03.90 - Unspecified dementia, unspecified severity, without behavioral disturbance, psychotic disturbance, mood disturbance, and anxiety Category: Medical Qualifiers: Alzheimer's disease onset: unspecified onset Dementia behavioral disturbance: with behavioral disturbance Dementia type: Alzheimer's Qualified Code(s): G30.9 - Alzheimer's disease, unspecified; F02.81 - Dementia in other diseases classified elsewhere with behavioral disturbance Plan: Conservative management (7) Hypothyroid: Code(s): E03.9 - Hypothyroidism, unspecified Category: Medical Plan: Continue with thyroid medication but was advised to have a retest of the TSH as it was low (8) Impaired fasting blood sugar: Code(s): R73.01 - Impaired fasting glucose Category: Medical Plan: Decrease the amount of carbohydrate intake, pasta, bread, rice and potatoes are all sugar and that is aside from all the sweet stuff, remember that fruits are good but they are Sweet also. Noted increase in A1c (9) Coarse tremors: Code(s): G25.2 - Other specified forms of tremor Category: Medical Plan: On propranolol 10 mg twice a day (10) Anemia: Code(s): D64.9 - Anemia, unspecified Category: Medical Plan History of Present Illness The patient is a 63-year-old male presenting for a physical examination and management of chronic conditions. He has a notable medical history of essential hypertension, asthma, hypercholesterolemia, hypothyroidism, and dementia. Following treatment for prostate cancer in 2012, there is no recurrence noted. The hypertension is currently well-controlled on lisinopril, and he uses propranolol for tremors which have increased since the prior visit. For asthma, the patient manages symptoms with albuterol as needed and reports infrequent use. Hypercholesterolemia remains stable under atorvastatin therapy. His diabetes risk increases, as evidenced by an increase in hemoglobin A1c from 6% in 2020 to 6.2%. The thyroid was also recently noted to have low TSH values, necessitating retesting. A prior colonoscopy in 2020 detected tubular adenoma with a follow-up colonoscopy due next year. Health Maintenance Social History - Does not consume alcohol or tobacco. - Reports dietary intake includes significant rice consumption. - Physical activity limited, with a preference against running. Review of Systems - Gastrointestinal: Denies nausea, vomiting, heartburn, diarrhea, and constipation. - Respiratory: Denies shortness of breath, wheezing, and sleeping issues related to breathing. - Cardiovascular: Reports occasional dizziness but denies chest pain or waking at night to urinate excessively. - Neurological: Denies hearing issues. Physical Exam General: Cooperative, healthy appearing, comfortable, no acute distress and well developed Orientation: Patient oriented x3 Limitations: No limitations Head: Normal to inspection Ears: Hearing grossly normal bilaterally Nose: Normal external nose present Face and sinus: Normal facial exam Eyes: Appearance normal, both eyes and all related structures Neck: Normal visual inspection and Yes full ROM Respiratory: Normal respiratory effort and able to speak in complete sentences. Clear to auscultation bilaterally Cardiovascular: Regular rate and rhythm. Normal S1 and S2 GI: Normal to inspection. Soft to palpation and nontender Skin: No rashes or lesions noted Neuro: Patient oriented x3 Extremities: Normal to inspection Results - Labs: Hemoglobin 13.4 g/dL, Hemoglobin A1c 6.2%, normal sodium and potassium, normal liver and kidney functions. - Tests: Recent thyroid function showing low TSH. Plan Patient was informed and verbally consented to the use of an ambient scribe for clinic note documentation during this visit. Discussion Notes We discussed the patient's current health status, including controlled hypertension, asthma management, and stable cholesterol. We reviewed his hemoglobin A1c results, highlighting the need for dietary adjustments centered on reducing carbohydrate intake to prevent diabetes progression. We emphasized reducing rice consumption and ensuring regular physical activity. Concerning low thyroid function, I explained the importance of retesting to confirm whether therapy adjustments are necessary and advised the patient to fast before the upcoming test. Patient Instructions - Continue lisinopril 5 mg daily for blood pressure management. - Use albuterol inhaler as needed; limit use to symptom episodes. - Take atorvastatin 20 mg once daily for cholesterol control. - Reduce rice intake and opt for a balanced diet concentrating on vegetables and proteins. - Engage in regular physical activity, considering low-impact exercises if preferred. - Do not consume foods before next month's thyroid function test. - Return for retesting of thyroid function and continued monitoring of hemoglobin levels. - Report any new symptoms or changes in health promptly. - Attend follow-up appointments as discussed. Orders: Orders Complete Blood Count Auto Diff 4 Weeks D64.9 - Anemia, unspecified Ferritin 4 Weeks D64.9 - Anemia, unspecified Free T4 (Free Thyroxine) 4 Weeks D64.9 - Anemia, unspecified IRON PROFILE 4 Weeks D64.9 - Anemia, unspecified Vitamin B12 and Folate 4 Weeks D64.9 - Anemia, unspecified Comprehensive Met. Panel 4 Weeks D64.9 - Anemia, unspecified Hemoglobin A1c 4 Weeks D64.9 - Anemia, unspecified Thyroid Stimulating Hormone 4 Weeks D64.9 - Anemia, unspecified Reticulocyte Count 4 Weeks D64.9 - Anemia, unspecified
== END 2024-07-31 14:26 | disposition home or self-care (01) ==
LOC: HO.HMCH 13:36
PROVIDERS: PCP Internal Medicine; Visit Provider Internal Medicine
DX: Z00.00 Encounter for general adult medical examination without abnormal findings (principal); I10 Essential (primary) hypertension; J45.20 Mild intermittent asthma, uncomplicated; G30.9 Alzheimer's disease, unspecified; E78.00 Pure hypercholesterolemia, unspecified; Z85.46 Personal history of malignant neoplasm of prostate; F02.81 Dementia in other diseases classified elsewhere, unspecified severity, with behavioral disturbance; E03.9 Hypothyroidism, unspecified; R73.01 Impaired fasting glucose; G25.2 Other specified forms of tremor; D64.9 Anemia, unspecified

== ENCOUNTER → 2024-07-31 13:36 | Outpatient (BNVA) | payer MEDICARE, MEDICAID, SELFPAY | PROVIDERS: PCP Internal Medicine; Visit Provider Internal Medicine | DX: Z00.00 Encounter for general adult medical examination without abnormal findings (principal); I10 Essential (primary) hypertension; J45.20 Mild intermittent asthma, uncomplicated; E78.00 Pure hypercholesterolemia, unspecified; G30.9 Alzheimer's disease, unspecified; F02.811 Dementia in other diseases classified elsewhere, unspecified severity, with agitation; E03.9 Hypothyroidism, unspecified; R73.01 Impaired fasting glucose; G25.2 Other specified forms of tremor; D64.9 Anemia, unspecified | CPT/HCPCS: 96127; 99396 ==

== ENCOUNTER 2024-09-07 11:55 | Outpatient (REF) | payer MEDICARE, SELFPAY ==
[2024-09-07 12:14] LABS: MANUAL DIFF FLAG NO
[2024-09-07 12:23] LABS: Basophils Absolute Auto 0.1 X10*3/uL (0.0-0.2); Basophils Percent Auto 1.2 % (0-2); Eosinophils Absolute Auto 0.3 X10*3/uL (0.0-0.4); Eosinophils Percent Auto 6.6 % (0-4); Hematocrit 39.5 % (42.0-52.0); Hemoglobin 13.1 g/dl (14.0-18.0); Lymphocytes Percent Auto 40.7 % (20-40); Mean Corpuscular HGB Conc 33.2 g/dl (31.0-36.0); Mean Corpuscular Hemoglobin 29.5 pg (27.0-33.0); Monocytes Absolute Auto 0.4 X10*3/uL (0.1-1.2); Monocytes Percent Auto 8.3 % (2-11); Neutrophils Absolute Auto 2.1 x10*3/uL (2.0-8.3); Neutrophils Percent Auto 43.2 % (45-73); Platelet Count 283 X10*3/uL (160-400); Red Blood Count 4.44 X10*6/uL (4.60-5.80); Red Cell Distribution Width 12.5 % (11.0-16.0); Retic HGB Equivalent 32.8 pg (30.0-35.0); Reticulocyte Percent 1.5 % (0.5-1.8); Reticulocytes Absolute 0.064 X10*6/uL (0.026-0.095); White Blood Count 4.8 X10*3/uL (4.8-10.8)
[2024-09-07 12:28] LABS: Estimated Average Glucose 128 mg/dL; Hemoglobin A1C 151.3441 umol/L; Hemoglobin A1c % 6.1 % (<6.0); Total Hemoglobin (HGBA1C) 3506.7493 umol/L
[2024-09-07 12:53] LABS: Alanine Aminotransferase 22 U/L (0-40); Albumin Level 4.3 g/dL (3.5-5.0); Alkaline Phosphatase 72 U/L (39-117); Anion Gap 8 (12-20); Aspartate Amino Transferase 22 U/L (5-37); Bilirubin Total 0.4 mg/dL (0.0-1.0); Blood Urea Nitrogen 11 mg/dL (9-16); Calcium 9.3 mg/dL (8.4-10.2); Carbon Dioxide 26 mmol/L (22-29); Chloride 108 mmol/L (96-108); Estimated Glomerular Filt Rate > 60; Glucose Random 108 mg/dL (60-115); Iron 94 mcg/dL (45-160); Percent Iron Saturation 37 % (15-50); Potassium 4.1 mmol/L (3.3-5.1); Sodium 138 mmol/L (135-145); Total Iron Binding Capacity 255 mcg/dL (228-428); Total Protein 7.1 g/dL (6.5-8.0); Unsaturated Iron Binding 161 ug/dL
[2024-09-07 13:10] LABS: Ferritin 136 ng/mL (20-250); Thyroid Stimulating Hormone 0.07 uIU/mL (0.32-4.0)
[2024-09-07 13:24] LABS: Folate 14.4 ng/mL (> or = 4.0); Vitamin B12 686 pg/mL (200-900)
== END 2024-09-07 11:56 | disposition home or self-care (01) ==
LOC: HO.LAB 11:55
PROVIDERS: PCP Internal Medicine; Visit Provider Internal Medicine
DX: D64.9 Anemia, unspecified (principal); Z13.1 Encounter for screening for diabetes mellitus
CPT/HCPCS: 36415; 80053; 82607; 82728; 82746; 83036; 83540; 84439; 84443; 85025; 85045

== ENCOUNTER 2024-10-02 14:13 | Outpatient (REF) | payer MEDICARE, SELFPAY ==
--- NOTE | ~2024-10-02 | XR_ITS ---
EXAMINATION: XR LUMBOSACRAL SPINE CLINICAL INFORMATION: M54.50 - Low back pain, unspecified COMPARISON: None available. TECHNIQUE: Three views of the lumbosacral spine. FINDINGS: Endplate sclerosis and marginal osteophyte formation, small size from L3-4 to L4-5 levels. Focal calcification in the anterior intervertebral disc L3-4. No acute cortical disruption. No gross malalignment. No lytic or blastic lesions. Abundant stool. XR/XR lumbar spine 2-3V IMPRESSION: Mild multilevel spondylosis. Electronically signed by: Tejinder Pacheco MD 10/03/2024 07:46 AM EDT
--- NOTE | ~2024-10-02 | XR_ITS ---
EXAMINATION: XR SACROILIAC JOINTS CLINICAL INFORMATION: M54.50 - Low back pain, unspecified COMPARISON: None available. TECHNIQUE: 3 views of the sacroiliac joints FINDINGS: Sclerosis along the superior right sacroiliac joint. No acute cortical disruption. No lytic or blastic lesions. XR/XR sacroiliac joint 1-2V IMPRESSION: Sacroiliitis, right-sided. Electronically signed by: Tejinder Pacheco MD 10/03/2024 07:47 AM EDT
== END 2024-10-02 14:14 | disposition home or self-care (01) ==
LOC: HO.XRAY 14:13
PROVIDERS: PCP Internal Medicine; Visit Provider Internal Medicine
DX: M54.50 Low back pain, unspecified (principal); M77.01 Medial epicondylitis, right elbow; M77.02 Medial epicondylitis, left elbow; M79.604 Pain in right leg; G30.9 Alzheimer's disease, unspecified; F02.818 Dementia in other diseases classified elsewhere, unspecified severity, with other behavioral disturbance; I10 Essential (primary) hypertension; E78.00 Pure hypercholesterolemia, unspecified; E03.9 Hypothyroidism, unspecified; Z85.46 Personal history of malignant neoplasm of prostate
CPT/HCPCS: 72100; 72200; 99212

== ENCOUNTER 2024-10-02 14:13 | Outpatient (AMB) | payer MEDICARE, SELFPAY ==
--- NOTE | 2024-10-02 14:22 | A.OFFPC_ITS ---
Vital Signs 10/02/24 14:23 Height 5 ft 7 in Weight 160 lb BMI 25.1 BP 130/60 Blood Pressure Location Rt brachial Position Sitting Pulse 68 Pulse Source Pulse Oximeter Temp 97.3 F Temp Source Temporal Artery Scan Pulse Oximetry (%) 98 Oxygen Delivery Method Room Air Intake Visit Reasons: Arm pain Intake Note: Patient is here to follow up on right arm and lower back pain. 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 Accompanied by: Spouse Allergies SEASONAL ALLERGIES Allergy (Mild, Uncoded 10/02/24 14:24) Itchy Eyes Medication List - Last Reconciled 10/02/24 by Bruce Acosta MD albuterol sulfate 90 mcg/actuation 2 puffs inhalation Q4H PRN atorvastatin 20 mg PO DAILY 90 days blood pressure monitor (Blood Pressure Kit) As directed capsaicin 0.025% 1 appl topical TID fexofenadine (Sabrina Allergy) 180 mg PO DAILY fluticasone propionate 50 mcg/actuation (Flonase Allergy Relief) 2 sprays intranasal DAILY levothyroxine 112 mcg orally Take every day except for Tuesday; 90 days lisinopril 5 mg PO DAILY meloxicam 15 mg PO DAILY multivitamin 1 tab PO DAILY propranolol 10 mg PO BID PRN triamcinolone acetonide 0.5% 1 appl topical BID Tobacco use date assessed: 07/31/24 Fall risk assessment: No Falls in past year Last assessed Fall Risk: 10/02/24 Dental Screening Dental Screen Date: 07/31/24 HPI Arm pain HPI Details complains of L lower back bilateral elbow R leg pain 1 week , no fall doing lawn with riding mower, nofall [facility] Medical History Vision changes Dementia History of prostate cancer Hypercholesterolemia Allergic rhinitis Hypertension Asthma Hypothyroid Surgical History History of facial surgery History of inguinal hernia repair SAH (subarachnoid hemorrhage) History of prostate surgery Family History Father No problems noted. Mother No problems noted. Social History Household Members: Spouse Housing: House Alcohol intake: never Patient Tobacco Use Status: Never used Tobacco Tobacco use type: Cigarette e-Cigarette/Vaping Use: Never Used Second Hand Smoke Exposure: No service: No Current occupational status: retired Cognitive needs: No Hearing needs: No Vision needs: No Questionnaire PHQ-9 Over the last 2 weeks, how often have you been bothered by any of the following problems? 1. Little interest or pleasure in doing things: several days 5. Poor appetite or overeating: not at all 6. Feeling bad about yourself - or that you are a failure or have let yourself or your family down: several days 7. Trouble concentrating on things, such as reading the newspaper or watching television: several days Source: Developed by Drs. Rosalino Reilly, Kiya Munoz, Manny Palmer and colleagues, with an educational mj from [employer]. Thrive Questionnaire Date Thrive assessed: 07/31/24 I am a: Patient What is your living situation today?: I have a steady place to live Within the past 12 months, did the food you bought not last and you didn't have the money to get more?: Never true Within the past 12 months, did you worry whether your food would run out before you got money to buy more?: Never true Do you have trouble paying for medicines?: No Do you have trouble getting transportation to medical appointments?: No Do you have trouble paying your heating and electricity bill?: No Do you have trouble taking care of your child, family member or friend?: No Do you have trouble with day-to-day activities such as bathing, preparing meals, shopping, managing finances, etc.?: No Are you currently unemployed and looking for a job?: No Are you interested in more education?: No Please select the resources that you would like help with: None Currently or been in a relationship where the following occur: No concerns reported THRIVE Score: 0 JACOB-7 AMB Questionnaire JACOB-7 Date JACOB - 7 assessed: 07/31/24 Source: Developed by Drs. Rosalino Reilly, Kiya Munoz, Manny Palmer and colleagues, with an educational mj from [employer]. Physical exam (Primary Care) Vital Signs: Last Vital Signs Temp 97.3 F 10/02/24 14:23 Pulse 68 10/02/24 14:23 BP 130/60 10/02/24 14:23 Pulse Ox 98 10/02/24 14:23 Oxygen Delivery Method Room Air 10/02/24 14:23 BMI result Body Mass Index 25.1 Tobacco/Smoking Status: Tobacco use Status Tobacco use date assessed 07/31/24 10/02/24 14:24 Patient Tobacco Use Status Never used Tobacco 10/02/24 14:24 Tobacco use type Cigarette 10/02/24 14:24 e-Cigarette/Vaping Use Never Used 10/02/24 14:24 Thrive Assessment: Date of Thrive Assessment Date Thrive assessed 07/31/24 10/02/24 14:24 Currently or been in a relationship where the following occur: No concerns reported Const Other: trender on the lateral epicondylitis bilateral , low back and R leg ain General: alert; No acute distress Eyes Conjunctivae: conjunctivae normal Resp Auscultation: clear to auscultation bilaterally Cardio Rate: regular rate Rhythm: regular rhythm GI Inspection: Yes normal to inspection Extrem General: Yes normal to inspection and No edema Coding Level of Care Code Est Pt Level 4 (14096) Diagnoses Low back pain M54.50 Bilateral medial epicondylitis of elbow joint M77.01; M77.02 Right leg pain M79.604 Alzheimer's dementia with behavioral disturbance, unspecified timing of dementia onset G30.9; F02.81 Alzheimer's disease onset: unspecified onset Dementia behavioral disturbance: with behavioral disturbance Dementia type: Alzheimer's Assessment & Plan Assessment & Plan (1) Low back pain: Code(s): M54.50 - Low back pain, unspecified Category: Medical (2) Bilateral medial epicondylitis of elbow joint: Code(s): M77.01 - Medial epicondylitis, right elbow; M77.02 - Medial epicondylitis, left elbow Category: Medical (3) Right leg pain: Code(s): M79.604 - Pain in right leg Category: Medical (4) Dementia: Comment: Two thousand eighteen Code(s): F03.90 - Unspecified dementia, unspecified severity, without behavioral disturbance, psychotic disturbance, mood disturbance, and anxiety Category: Medical Qualifiers: Alzheimer's disease onset: unspecified onset Dementia behavioral disturbance: with behavioral disturbance Dementia type: Alzheimer's Qualified Code(s): G30.9 - Alzheimer's disease, unspecified; F02.81 - Dementia in other diseases classified elsewhere with behavioral disturbance Plan History of Present Illness The patient is a 64-year-old male presenting with musculoskeletal pain. He reports the onset of this pain about a week prior, with no elicitation due to an injury. The pain is diffuse, mostly involving the back and both arms, and persists despite rest. The discomfort is linked to certain activities and postures and has influenced his ability to sleep. There are no signs of trauma or falls and no notable relief strategies have been mentioned. His past medical history includes hypertension, hypercholesterolemia, hypothyroidism, impaired glucose tolerance, previous prostate cancer in 2012, dementia, and a tubular adenoma. The last colonoscopy was completed in 2020. These conditions are part of his chronic health management but are stable with current treatments. Health Maintenance - Colonoscopy last completed in 2020 - History of prostate cancer monitoring ongoing - Management of hypertension, hypercholesterolemia, and hypothyroidism mentioned but not detailed Social History - Activity: Reduced outdoor activity due to pain; previously active with tasks such as lawn maintenance - Functional status: Increasing challenges due to pain; avoids some physical activities to mitigate pain - No reports of employment, education, or family status changes Review of Systems - Musculoskeletal: Reports musculoskeletal system pain, specifically in the back and arms - Neurological: Denies new neurological symptoms other than noted dementia - General: Denies fever, denies recent falls or traumas Physical Exam - Musculoskeletal- Tenderness noted in tendons; specific areas have palpation- induced discomfort - Neurological- No new deficits observed - Range of Motion (ROM)- No explicit limitation noted, but pain is described with specific maneuvers Results Plan I have ordered an x-ray of the back to investigate potential arthritic changes. We will initiate a physical therapy plan focused on managing his musculoskeletal pain effectively, recommending heat application. The patient is to use NSAIDs only when necessary, with food, to manage the pain while minimizing side effects. He is advised to participate actively in physical and occupational therapy to improve his condition. His chronic medical conditions will continue under current management. A referral for further neurological evaluation may be warranted given the patient?s dementia history. Patient was informed and verbally consented to the use of an ambient scribe for clinic note documentation during this visit. Discussion Notes During the visit, I discussed with the patient the probable cause of his musculoskeletal pain, emphasizing that it is likely musculoskeletal in nature rather than arising from deeper structural issues. We covered the role of physical and occupational therapy in managing and potentially alleviating his discomfort. The option of an x-ray was reviewed for diagnostic clarity, and the potential benefits of pain management strategies including NSAIDs were outlined, stressing careful usage with food to avoid gastrointestinal issues. Follow-up plans for potential further evaluation with neurology were mentioned, focused on dementia management. Patient Instructions - Use NSAIDs as directed, with food, and only if necessary for pain relief. - Attend all scheduled physical and occupational therapy appointments. - Apply heat to painful areas as needed for relief. - Continue with routine medications for chronic conditions. - Follow up with referred specialists as directed for further assessment. - Report any new symptoms or changes in condition promptly. Orders: Orders OT Evaluation and Treatment Today M77.01 - Medial epicondylitis, right elbow, M77.02 - Medial epicondylitis, left elbow PT Evaluation and Treatment Today M54.50 - Low back pain, unspecified, M79.604 - Pain in right leg XR lumbar spine 2-3V Today M54.50 - Low back pain, unspecified XR sacroiliac joint 1-2V Today M54.50 - Low back pain, unspecified Referrals Neurology Referral F02.81 - Dementia in other diseases classified elsewhere, unspecified severity, with behavioral disturbance, G30.9 - Alzheimer's disease, unspecified Medications: New meloxicam 15 mg PO DAILY 30 tabs 0RF M77.01 - Medial epicondylitis, right elbow, M77.02 - Medial epicondylitis, left elbow Refilled albuterol sulfate 90 mcg/actuation 8.5gm 200puffs 2 puffs inhalation Q4H PRN 8.5 grams 0RF shortness of breath or wheezing K52.9 - Noninfective gastroenteritis and colitis, unspecified
[2024-10-02 14:23] VITALS: BP 130/60; PULSE 68; TEMP 36.3; O2SAT 98; BMI 25.1
== END 2024-10-02 15:34 | disposition home or self-care (01) ==
LOC: HO.HMCH 14:14
PROVIDERS: PCP Internal Medicine; Visit Provider Internal Medicine
DX: M54.50 Low back pain, unspecified (principal); M77.01 Medial epicondylitis, right elbow; M77.02 Medial epicondylitis, left elbow; M79.604 Pain in right leg

== ENCOUNTER → 2024-10-02 15:47 | Outpatient (BNV) | payer MEDICARE, SELFPAY | PROVIDERS: PCP Internal Medicine; Visit Provider Radiology Diagnostic Radiology | DX: M54.50 Low back pain, unspecified (principal); M46.1 Sacroiliitis, not elsewhere classified | CPT/HCPCS: 72100; 72200 ==

== ENCOUNTER 2024-10-25 12:18 | Outpatient (REF) | payer MEDICARE, SELFPAY ==
[2024-10-25 14:27] LABS: Free T4 (Free Thyroxine) 0.99 ng/dL (0.71-1.85); Thyroid Stimulating Hormone 0.47 uIU/mL (0.32-4.0)
== END 2024-10-25 12:19 | disposition home or self-care (01) ==
LOC: HO.LAB 12:18
PROVIDERS: PCP Internal Medicine; Visit Provider Internal Medicine
DX: E03.9 Hypothyroidism, unspecified (principal)
CPT/HCPCS: 36415; 84439; 84443

== ENCOUNTER 2024-10-26 14:37 | Outpatient (AMB) | payer MEDICARE, SELFPAY ==
[2024-10-26 14:45] VITALS: BP 118/78; PULSE 78; O2SAT 98; BMI 25.1
--- NOTE | 2024-10-26 14:45 | A.OFFVIS_ITS ---
Vital Signs 10/26/24 14:45 Height 5 ft 7 in Weight 160 lb BMI 25.1 BP 118/78 Blood Pressure Location Rt brachial Position Sitting Pulse 78 Pulse Source Pulse Oximeter Pulse Oximetry (%) 98 Oxygen Delivery Method Room Air Intake Visit Reasons: 6 mnts f/u for tremors Intake Note: Patient presents for med trial propranolol Allergies SEASONAL ALLERGIES Allergy (Mild, Uncoded 10/26/24 14:48) Itchy Eyes Medication List - Last Reconciled 10/26/24 by Tali Alegre MD albuterol sulfate 90 mcg/actuation 2 puffs inhalation Q4H PRN atorvastatin 20 mg PO DAILY 90 days blood pressure monitor (Blood Pressure Kit) As directed capsaicin 0.025% 1 appl topical TID fexofenadine (Sabrina Allergy) 180 mg PO DAILY fluticasone propionate 50 mcg/actuation (Flonase Allergy Relief) 2 sprays intranasal DAILY levothyroxine 112 mcg orally Take every day except for Tuesday; 90 days lisinopril 5 mg PO DAILY meloxicam 15 mg PO DAILY multivitamin 1 tab PO DAILY propranolol 10 mg PO BID PRN triamcinolone acetonide 0.5% 1 appl topical BID HPI Comments Details: 63y/o Right handed male comes for follow up of tremors.Propranolol helped a little but still has tremors.He also reports right hand cramps. He also reports some blepherospasm He also has loud snoring excessive daytime sleepiness History from initial visit-03/2024 He is accompanied by his . About 6 mths ago he started noticing action tremors which fluctuates in intensity.The tremors increases with anxiety , stress, cold or hot weather. ADLS affected - writing-has difficulty- when he writes the fingers cramps up dressing-trouble brushing teeth shower-ok eating-trouble using chopsticks drinking liquids-difficult speech-ok FH/O tremors- none He has discomfort when his hands cramps up He has neck pain and tightness. [facility] Medical History (Updated 10/26/24 @ 15:00 by Tali Alegre MD) Hypersomnia Snoring Vision changes Dementia History of prostate cancer Hypercholesterolemia Allergic rhinitis Hypertension Asthma Hypothyroid Surgical History History of facial surgery History of inguinal hernia repair SAH (subarachnoid hemorrhage) History of prostate surgery Family History Father No problems noted. Mother No problems noted. Social History Household Members: Spouse Housing: House Alcohol intake: never Patient Tobacco Use Status: Never used Tobacco Tobacco use type: Cigarette e-Cigarette/Vaping Use: Never Used Second Hand Smoke Exposure: No service: No Current occupational status: retired Cognitive needs: No Hearing needs: No Vision needs: No Physical Exam Vital Signs: Last Vital Signs Pulse 78 10/26/24 14:45 BP 118/78 10/26/24 14:45 Pulse Ox 98 10/26/24 14:45 Oxygen Delivery Method Room Air 10/26/24 14:45 BMI result Body Mass Index 25.1 Const General: cooperative, healthy appearing and comfortable Nutritional Appearance: average body habitus Orientation/consciousness: patient oriented x3 Limitations: no limitations HEENT Head: Yes normal to inspection Eyes Pupils: Equal, round and reactive pupils present Neuro Other: very mild action tremors General: patient oriented x3, gait normal, tone normal, moves all extremities and no focal motor deficits Cranial nerves: Yes Facial sensation intact/muscles of mastication intact, Yes Equal, round and reactive pupils present, Yes Bilaterally intact EOM present, Yes Nystagmus not present, Yes Normal facial strength present, Yes Midline tongue present, Yes Symmetric palate elevation present and Yes Ability to bilaterally elevate shoulders present Cognition (Neuro): normal cognition Gait exam (Neuro): Normal gait present Motor exam (neuro): 5/5 motor strength present throughout and Normal motor muscle tone present throughout Coordination: [id number] test normal Assessment & Plan Assessment & Plan (1) Coarse tremors: Code(s): G25.2 - Other specified forms of tremor Category: Medical (2) Snoring: Code(s): R06.83 - Snoring Category: Medical (3) Hypersomnia: Code(s): G47.10 - Hypersomnia, unspecified Category: Medical Plan Very mild tremors continue propranalol 10mg bid as needed . Patient has mild asthma -suggested to avoid propranolol during his asthma attacks. gabapentin 300mg qhs to help with cramps and tremors Home sleep test to r/o sleep apnea Orders: Orders RT home sleep study Today G47.10 - Hypersomnia, unspecified, R06.83 - Snoring Medications: New gabapentin 300 mg PO BEDTIME 30 caps 6RF Coding Level of Care Code Est Pt Level 4 (70084) Complex EM visit Add On G2211 Diagnoses Coarse tremors G25.2 Snoring R06.83 Hypersomnia G47.10
== END 2024-10-26 15:06 | disposition home or self-care (01) ==
LOC: HO.HSMS 14:38
PROVIDERS: PCP Internal Medicine; Visit Provider Psychiatry & Neurology Neurology
DX: G25.2 Other specified forms of tremor (principal); R06.83 Snoring; G47.10 Hypersomnia, unspecified
CPT/HCPCS: 99214; G2211

== ENCOUNTER → 2024-10-26 14:37 | Outpatient (BNVA) | payer MEDICARE, SELFPAY | PROVIDERS: PCP Internal Medicine; Visit Provider Psychiatry & Neurology Neurology | DX: G25.2 Other specified forms of tremor (principal); R06.83 Snoring; G47.10 Hypersomnia, unspecified | CPT/HCPCS: 99212 ==

== ENCOUNTER 2024-11-05 13:35 | Outpatient (AMB) | payer MEDICARE, SELFPAY ==
[2024-11-05 13:47] VITALS: BP 126/78; PULSE 67; TEMP 36.3; O2SAT 97; BMI 24.6
--- NOTE | 2024-11-05 13:47 | MHC.PC.OV ---
Vital Signs 11/05/24 13:47 Height 5 ft 7 in Weight 157 lb BMI 24.6 BP 126/78 Blood Pressure Location Lt brachial Position Sitting Pulse 67 Pulse Source Pulse Oximeter Temp 97.3 F Temp Source Temporal Artery Scan Pulse Oximetry (%) 97 Oxygen Delivery Method Room Air Intake Visit Reasons: IGT Accompanied by: Spouse Allergies SEASONAL ALLERGIES Allergy (Mild, Uncoded 11/05/24 13:50) Itchy Eyes Tobacco use date assessed: 11/05/24 Fall risk assessment: No Falls in past year Last assessed Fall Risk: 11/05/24 Dental Screening Dental Screen Date: 11/05/24 Did you have a dental visit in the last 12 months?: Yes Did you have a dental problem in the last 6 months where you did not have access to dental care?: No Was dental information given to patient?: Patient has dentist [facility] Medical History Hypersomnia Snoring Vision changes Dementia History of prostate cancer Hypercholesterolemia Allergic rhinitis Hypertension Asthma Hypothyroid Surgical History History of facial surgery History of inguinal hernia repair SAH (subarachnoid hemorrhage) History of prostate surgery Family History Father No problems noted. Mother No problems noted. Social History Household Members: Spouse Housing: House Alcohol intake: never Patient Tobacco Use Status: Never used Tobacco Tobacco use type: Cigarette e-Cigarette/Vaping Use: Never Used Second Hand Smoke Exposure: No service: No Current occupational status: retired Cognitive needs: No Hearing needs: No Vision needs: No Questionnaire PHQ-9 Over the last 2 weeks, how often have you been bothered by any of the following problems? 1. Little interest or pleasure in doing things: not at all 2. Feeling down, depressed, or hopeless: not at all 3. Trouble falling or staying asleep, or sleeping too much: not at all 4. Feeling tired or having little energy: not at all 5. Poor appetite or overeating: not at all 6. Feeling bad about yourself - or that you are a failure or have let yourself or your family down: not at all 7. Trouble concentrating on things, such as reading the newspaper or watching television: not at all 8. Moving or speaking so slowly that other people could have noticed. Or the opposite - being so fidgety or restless that you have been moving around a lot more than usual: not at all 9. Thoughts that you would be better off or of hurting yourself in some way: not at all Total score: 0 Depression Screening Interpretation: Negative Depression Screening Done: Yes Source: Developed by Drs. Rosalino Reilly, Kiya Munoz, Manny Palmer and colleagues, with an educational mj from [employer]. Thrive Questionnaire Date Thrive assessed: 11/05/24 I am a: Patient What is your living situation today?: I have a steady place to live Within the past 12 months, did the food you bought not last and you didn't have the money to get more?: Never true Within the past 12 months, did you worry whether your food would run out before you got money to buy more?: Never true Do you have trouble paying for medicines?: No Do you have trouble getting transportation to medical appointments?: No Do you have trouble paying your heating and electricity bill?: No Do you have trouble taking care of your child, family member or friend?: No Do you have trouble with day-to-day activities such as bathing, preparing meals, shopping, managing finances, etc.?: No Are you currently unemployed and looking for a job?: No Are you interested in more education?: No Please select the resources that you would like help with: None Currently or been in a relationship where the following occur: No concerns reported THRIVE Score: 0 AUDIT C Alcohol Use Questionnaire (AUDIT-C) 1. How often do you have a drink containing alcohol?: Never 3. How often do you have six or more drinks on one occasion?: Never Total Score: 0 JACOB-7 AMB Questionnaire JACOB-7 Date JACOB - 7 assessed: 07/31/24 Feeling nervous, anxious, or on edge: 0 = Not at all Not being able to stop or control worryin = Not at all Worrying too much about different things: 0 = Not at all Trouble relaxin = Not at all Being so restless that it is hard to sit still: 0 = Not at all Becoming easily annoyed or irritable: 0 = Not at all Feeling afraid as if something awful might happen: 0 = Not at all Total JACOB-7 score (0-4 normal; 5-9 mild; 10-14 moderate; 15-21 severe): 0 Source: Developed by Drs. Rosalino Reilly, Kiya Munoz, Manny Palmer and colleagues, with an educational mj from [employer]. JACOB-7 Assessment Billing JACOB-7 Assessment Tool: JACOB-7 Assessment 64992 Physical exam (Primary Care) Vital Signs: Last Vital Signs Temp 97.3 F 11/05/24 13:47 Pulse 67 11/05/24 13:47 BP 126/78 11/05/24 13:47 Pulse Ox 97 11/05/24 13:47 Oxygen Delivery Method Room Air 11/05/24 13:47 BMI result Body Mass Index 24.6 Tobacco/Smoking Status: Tobacco use Status Tobacco use date assessed 11/05/24 11/05/24 13:52 Patient Tobacco Use Status Never used Tobacco 11/05/24 13:52 Tobacco use type Cigarette 11/05/24 13:52 e-Cigarette/Vaping Use Never Used 11/05/24 13:52 PHQ-9: PHQ-9 Score PHQ-9: Total score 0 11/05/24 14:17 Depression Screening Interpretation: Negative Thrive Assessment: Date of Thrive Assessment Date Thrive assessed 11/05/24 11/05/24 13:52 Currently or been in a relationship where the following occur: No concerns reported Const General: alert; No acute distress Eyes Conjunctivae: conjunctivae normal Resp Auscultation: clear to auscultation bilaterally Cardio Rate: regular rate Rhythm: regular rhythm GI Inspection: Yes normal to inspection Extrem General: Yes normal to inspection and No edema Coding Level of Care Code Est Pt Level 4 (46468) Diagnoses Essential hypertension I10 Hypertension type: essential hypertension Impaired fasting blood sugar R73.01 Hypothyroid E03.9 Bilateral medial epicondylitis of elbow joint M77.01; M77.02 Coarse tremors G25.2 Mild intermittent asthma without complication J45.20 Asthma complication type: uncomplicated Asthma persistence: intermittent Asthma severity: mild Bilateral hand pain M79.641; M79.642 Additional Codes JACOB-7 Assessment Billing - JACOB-7 Assessment Tool: JACOB-7 Assessment 60298 ([id number]) Assessment & Plan Assessment & Plan (1) Hypertension: Code(s): I10 - Essential (primary) hypertension Category: Medical Qualifiers: Hypertension type: essential hypertension Qualified Code(s): I10 - Essential (primary) hypertension Plan: Continue with blood pressure medication. Decrease salt intake and exercise patient on lisinopril 5 mg once a day and propranolol 10 mg twice (2) Impaired fasting blood sugar: Code(s): R73.01 - Impaired fasting glucose Category: Medical Plan: Decrease the amount of carbohydrate intake, pasta, bread, rice and potatoes are all sugar and that is aside from all the sweet stuff, remember that fruits are good but they are Sweet also. (3) Hypothyroid: Code(s): E03.9 - Hypothyroidism, unspecified Category: Medical Plan: Continue with thyroid medication and retesting is normal (4) Bilateral medial epicondylitis of elbow joint: Code(s): M77.01 - Medial epicondylitis, right elbow; M77.02 - Medial epicondylitis, left elbow Category: Medical (5) Coarse tremors: Code(s): G25.2 - Other specified forms of tremor Category: Medical Plan: On propranolol (6) Asthma: Code(s): J45.909 - Unspecified asthma, uncomplicated Category: Medical Qualifiers: Asthma complication type: uncomplicated Asthma persistence: intermittent Asthma severity: mild Qualified Code(s): J45.20 - Mild intermittent asthma, uncomplicated Plan: Continue with albuterol inhaler and to use as needed (7) Bilateral hand pain: Code(s): M79.641 - Pain in right hand; M79.642 - Pain in left hand Category: Medical Plan History of Present Illness The patient is a 64-year-old male presenting for a follow-up visit. He has a history of asthma, hypertension, and hypercholesterolemia, managed with medications including propranolol and lisinopril. In 2012, he was diagnosed with prostate cancer, and he also has a history of hypothyroidism and tubular adenoma of the colon, diagnosed in 2020. Recently, the patient has experienced low back pain and right leg pain, with no specified treatment or intervention noted. He has mild anemia, as indicated by his last blood work in August 2024. The patient has been advised to undergo a deep study by urology, following his recent visit on October 26. His thyroid function tests have shown results in the lower range, and he continues on thyroid medication with periodic retesting. Health Maintenance Social History Review of Systems - Musculoskeletal: Reports low back pain and right leg pain. Physical Exam Results - Labs: Mild anemia noted in blood work from September 07, 2024. - Labs: Thyroid function tests in the lower range. Plan The patient will continue with his current medications, including propranolol and lisinopril, for management of hypertension and asthma. He is advised to continue with thyroid medication, with periodic retesting to monitor thyroid function. For his musculoskeletal complaints, particularly low back pain and right leg pain, an x-ray of the hand has been suggested to rule out any underlying issues, and Voltaren gel has been prescribed for pain management. The patient has been advised to undergo a sleep study, with instructions on how to use the equipment provided. Follow-up with urology is recommended, and the patient is to be contacted for further instructions regarding the study. Patient was informed and verbally consented to the use of an ambient scribe for clinic note documentation during this visit. Discussion Notes I discussed with the patient the continuation of his current medications, including propranolol and lisinopril, and the importance of monitoring his thyroid function with periodic retesting. We talked about the management of his musculoskeletal pain with Voltaren gel and the potential need for an x-ray to further investigate his symptoms. I also explained the process and purpose of the sleep study, ensuring he understood how to use the equipment and the importance of follow-up with urology. Patient Instructions - Continue taking propranolol and lisinopril as prescribed. - Use Voltaren gel for pain management as directed. - Follow instructions for the sleep study and return the equipment as advised. - Attend follow-up appointments with urology and for any further testing as scheduled. Medications: New diclofenac sodium 1% (Voltaren Arthritis Pain) apply to single knee, ankle, foot; for foot includes sole/toes/top of foot 4 grams topical QID 100 grams 3RF M79.641 - Pain in right hand, M79.642 - Pain in left hand Refilled levothyroxine 112 mcg orally Take every day except for Tuesday; 90 tabs 3RF 90 days E03.9 - Hypothyroidism, unspecified Discontinued meloxicam Discontinued Reason: Doctor's Order 15 mg PO DAILY 30 tabs 0RF M77.01 - Medial epicondylitis, right elbow, M77.02 - Medial epicondylitis, left elbow
== END 2024-11-05 14:28 | disposition home or self-care (01) ==
LOC: HO.HMCH 13:35
PROVIDERS: PCP Internal Medicine; Visit Provider Internal Medicine
DX: I10 Essential (primary) hypertension (principal); R73.01 Impaired fasting glucose; E03.9 Hypothyroidism, unspecified; M77.01 Medial epicondylitis, right elbow; M77.02 Medial epicondylitis, left elbow; G25.2 Other specified forms of tremor; J45.20 Mild intermittent asthma, uncomplicated; M79.641 Pain in right hand; M79.642 Pain in left hand

== ENCOUNTER 2024-11-05 13:35 | Outpatient (REF) | payer MEDICARE, SELFPAY ==
--- NOTE | ~2024-11-05 | XR_ITS ---
EXAMINATION: XR HAND 3 VIEWS BILATERAL HISTORY: M79.641 - Pain in right hand COMPARISON: There are no prior studies available for comparison. FINDINGS: Six views of the bilateral hands are submitted. Osseous mineralization is normal. There is no fracture or dislocation. 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 On the left, there is mild degenerative change of the DIP joint of the index finger, the MCP joint of the thumb, and the DIP and PIP joints of the 5th finger. The soft tissues are unremarkable. XR/XR Hand Bilat min 3v IMPRESSION: Degenerative changes of the bilateral hands as described. Electronically signed by: Rosalino Durant MD 11/05/2024 02:54 PM EDT
== END 2024-11-05 13:36 | disposition home or self-care (01) ==
LOC: HO.XRAY 13:35
PROVIDERS: PCP Internal Medicine; Visit Provider Internal Medicine
DX: I10 Essential (primary) hypertension (principal); R73.01 Impaired fasting glucose; E03.9 Hypothyroidism, unspecified; M77.01 Medial epicondylitis, right elbow; M77.02 Medial epicondylitis, left elbow; G25.2 Other specified forms of tremor; J45.20 Mild intermittent asthma, uncomplicated; M79.641 Pain in right hand; M79.642 Pain in left hand; Z79.899 Other long term (current) drug therapy; Z13.31 Encounter for screening for depression
CPT/HCPCS: 73130; 96127; 99212

== ENCOUNTER → 2024-11-05 14:37 | Outpatient (BNV) | payer MEDICARE, SELFPAY | PROVIDERS: PCP Internal Medicine; Visit Provider Radiology Diagnostic Radiology | DX: M19.041 Primary osteoarthritis, right hand (principal); M19.042 Primary osteoarthritis, left hand | CPT/HCPCS: 73130 ==

== ENCOUNTER 2024-11-13 13:52 | Outpatient (RCR) | payer MEDICARE, SELFPAY ==
--- NOTE | 2024-10-16 13:45 | MHC.OT.EP ---
[address] [phone] Occupational Therapy Plan of Care Patient Name: Sj Sánchez Date of Evaluation: 10/16/24 Diagnosis: B/L Epicondylitis Pain Location: High pain in B/L lateral epicondyles, left > right Tender to palpate B/L epicondyles Pain Score: 8 Pain Scale Used: Numeric (0 - 10) Aggravating Factors: Heavy and forceful use of arms Alleviating Factors: Tylenol, not tried ice or heat yet Assessment: 64 yo male was seen by PCP and reported B/L elbow pain w/ tenderness to palpate over epicondyles. He has been referred to OT for management of epicondylitis. On assessment today, he reports B/L elbow pain localized to lateral epicondyles and has (+) cozen's test consistent w/ lateral epicondylitis. 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 We will continue course of OT to address elbow pain w/ incorporation of activity modification, joint protection, pain mangement and progression of strengthening. Frequency and Duration: The patient will be seen 2x/wk for 4 weeks Short Term Goals: Ind w/ CFB wear Good follow through w/ activity modification recommendations Report ease w/ sleeping through modified positioning Detention Goals: Pain free B/L elbows at rest QuickDASH score <40 pts Ind w/ progression of strengthening program Treatment Plan: Therapeutic Exercise Therapeutic Activity Home Exercise Program Splinting Patient Education Edema Control ADL Training Ultrasound Iontophoresis MHP Cold Packs Joint Mobilization Soft Tissue Mobilization Kinesiotaping CFB wear Nighttime orthoses if needed Electronically Signed By: Alexandra Verdin, OTR/L CHT Please Sign and return to therapist. Thank you once again for your referral.
--- NOTE | 2024-12-25 09:43 | MHC.OT.DC ---
[facility] Office [address] [phone] F: [phone] F: [phone] Occupational Therapy Discharge Note Patient Name: Sj Sánchez Provider: Dr Bruce Acosta Diagnosis: B/L Epicondylitis Date of Evaluation: 10/16/24 Treatments to Date: 7 Discharge Status: Achieved Goals Improved Function Independent with HEP Discharge Summary: Sj was referred to OT for B/L elbow pain due to overuse injury. He has progressed well through course of OT and has been pain free. He has good follow through w/ stretches, exercises and orthosis wear. Still very active w/ home activities and property management and will continue home program and self management. Electronically Signed By: CECILIO Putnam/L CHT Reviewed/agree with student documentation: Therapist: Please Sign and return to therapist, thank you for your referral.
== END 2024-12-25 09:44 | disposition home or self-care (01) ==
LOC: HO.OT 13:52
PROVIDERS: PCP Internal Medicine; Visit Provider Internal Medicine
DX: M77.01 Medial epicondylitis, right elbow (principal); M77.02 Medial epicondylitis, left elbow
CPT/HCPCS: 97035; 97110; 97140; 97165

== ENCOUNTER 2024-11-29 12:35 | Outpatient (RCR) | payer MEDICARE, SELFPAY ==
--- NOTE | 2024-10-23 16:17 | MHC.PT.EP ---
[facility] [place] Office [place] Office [place] Office [address] Radha Cheng [address] [phone] F: [phone] F: [phone] F: [phone] F: [phone] Physical Therapy Plan of Care Date of Evaluation: 10/23/24 Date of Surgery: NA Diagnosis: LOW BACKPAIN, PAIN IN RIGHT, LEG Assessment: Pt IS 64 YO M REFERRED TO PT FROM DR ARANA WITH LBP AND R LE PAIN. Pt WITH CHRONIC R KNEE PAIN (?INJURY TO R LOWER LEG IN PAST) WITH C/O B ELBOW PAIN (?TENDONITIS FROM WORK IN [employer]) AND UPPER AND LOWER BACK PAIN. PRESENTS WITH TIGHT LUMBAR PARASPINALS AND GENERALIZED DECREASED FLEXIBILITY. SHOULD BENEFIT FROM PT FOR A STRETCHING/STRENGTHENING PROGRAM Frequency and Duration: The patient will be seen 2X/WK X 6 WKS Short Term Goals: 1. INCREASED POSTURE AWARENESS AND AWARENESS OF BACK CARE 2. 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 I HEP WITH DC EX PLAN 2. DECREASED BACK PAIN AT LEAST 50% WITH ADLS Treatment Plan: Modalities to reduce pain, spasms and effusion. Manual therapy to restore motion and function. Therapeutic exercise to improve strength and flexibility. Neuromuscular re-education for posture and balance. Therapeutic activities to return to functional activities of daily living. Electronically signed by: ROXI SEQUEIRA PT Please sign and return to therapist. Thank you for your referral.
--- NOTE | 2024-12-07 10:39 | MHC.PT.DC ---
[facility] [place] Office [place] Office [place] Office [address] Radha Cheng [address] [phone] F: [phone] F: [phone] F: [phone] F: [phone] Physical Therapy Discharge Report Diagnosis: LOW BACKPAIN, PAIN IN RIGHT, LEG Date of Surgery: NA Date of Evaluation: 10/23/24 Date of Discharge: 12/07/24 Treatments to Date: 9 Cancellations to Date: No Shows to Date: Discharge Status: Recommend MD Follow-up Discharge Summary: PER LAST ASSISSMENT BY Rosa AKINS MARKETING SERVICES SPECIALIST 11/29 Pt reports continued LBP. Improved form with ex today w/no increased px. Reissued today. Pt ed posture support in sitting and body mechanics review. Pt seems to not have a good understanding of body mechanics. Pt D/C today. Electronically signed by: ROXI SEQUEIRA PT Please sign and return to therapist. Thank you for your referral.
== END 2024-12-07 10:40 | disposition home or self-care (01) ==
LOC: HO.PT 12:35
PROVIDERS: PCP Internal Medicine; Visit Provider Internal Medicine
DX: M79.604 Pain in right leg (principal); M54.50 Low back pain, unspecified
CPT/HCPCS: 97110; 97140; 97161

== ENCOUNTER → 2025-01-10 14:55 | Outpatient (REF) | payer MEDICARE, SELFPAY ==
--- OUTSIDE RECORDS SUMMARY | 2025-01-10 15:37 | XMS_ITS | Clinical Summary ---
Author Organization [facility] Address [address] [place] [id number] Phone Care Team Providers Care Toppiece Chopper Name Role Phone Bruce Acosta MD Primary Care Provider Allergies No known active allergies Medications lisinopril (PRINIVIL,ZESTRI L) 5 MG tablet Take 5 mg by mouth daily. Active atorvastatin (LIPITOR) 20 MG tablet Take 20 mg by mouth daily. Active levothyroxine (SYNTHROID, LEVOTHROID) 112 MCG tablet Take 1 tablet by mouth every morning. 12/02/2023 Active Social History Tobacco Use Types Packs/Day Years Used Date Smoking Tobacco: Never Assessed Education Answer Date Recorded Are you interested in more education? Not on subhash e 12/17/2023 Are you concerned about learning? Not on file 12/17/2023 No 12/17/2023 No 12/17/2023 Digital Access Answer Date Recorded No 12/17/2023 No 12/17/2023 Reliable internet access at home? Not on file 12/17/2023 Device with a working camera? Not on file Intimate Partner Violence Answer Date R ecorded Are you denied basic needs s uch as food, clothing, or medical care? No 12/17/2023 In the past 12 months have y ou been in a relationship with a person who hurts, threatens, or tries to control you? No 12/17/2023 Are you denied basic needs s uch as food, clothing, or medical care? No 12/17/2023 In the past 12 months have y ou been in a relationship with a person who hurts, threatens, or tries to control you? No 12/17/2023 Sex and Gender Information Value Date Recorded Sex Assigned at Male 12/17/2023 3:35 PM EDT Legal Sex Male 2:48 PM EDT Gender Identity Male 12/17/2023 3:35 PM EDT Sexual Orientation Don't know 12/17/2023 3: 35 PM EDT Last Filed Vital Signs Vital Sign Reading Time Taken Comments Blood Pressure 112/79 12/17/2023 3:49 PM EDT Pulse 66 12/17/2023 3:49 PM EDT Temperature 36.1 C (97 F) 12/17/2023 3:49 PM EDT Respiratory Rate 15 12/17/2023 3:49 PM EDT Oxygen Saturation 100% 12/17/2023 3:49 PM EDT Inhaled Oxygen Concentration - - Weight 68 kg (150 lb) 12/17/2023 3:20 PM EDT Height 167.6 cm (5' 6 ) 12/17/2023 3:20 PM EDT Body Mass Index 24.21 12/17/2023 3:20 PM EDT Plan of Treatment Health Maintenance Due Date Last Done Comments Adult Td,Tdap Booster 1959 CREATININE LEVEL 1959 LIPID PANEL 1959 POTASSIUM LEVEL 1959 TSH LEVEL 1959 DEPRESSION SCREENING 1971 SMOKING Hx and SMOKELESS TOB ACCO SCREENING 08/30/1972 HEPATITIS C SCREENING 08/30/1977 HIV ONE-TIME SCREENING (18-6 5 YEARS) 08/30/1977 COLOGUARD 08/30/2004 COLONOSCOPY 08/30/2004 COLORECTAL CANCER SCREENING 08/30/2004 FIT TEST 08/30/2004 FOBT 08/30/2004 SIGMOIDOSCOPY 08/30/2004 VIRTUAL COLONOSCOPY 08/30/2004 PNEUMOCOCCAL VACCINES (50+ y ears) (1 of 1 - PCV) 08/30/2009 ZOSTER VACCINES (1 of 2) 08/30/2009 COVID-19 VACCINE ( - 2023-2 5 season) 2024 RSV VACCINE (1 - 1-dose 75+ series) 08/30/2034 HEPATITIS A VACCINES Aged Out No long er eligible based on patient's age to complete this topic HIB VACCINES Aged Out No longer eligi ble based on patient's age to complete this topic MENINGOCOCCAL VACCINES (ACWY) Aged Out No longer eligible based on patient's age to complete this topic MENINGOCOCCAL VACCINES (B) Aged Out N o longer eligible based on patient's age to complete this topic Medical Devices [place] [id number] MEDICARE PART A & [place] [phone] MEDICARE PART A & [place] [id number] MEDICARE PART A & B Care Teams Toppiece Chopper Relationship Specialty Start Date End Date Bruce Acosta MD [address] [place] [address] Drive [address] [place] [id number] PCP - General Internal Medicine 12/17/23 Additional Source Comments The information contained in this document represents components of the legal health record. It is not the complete legal health record.[facility]
== END ==
LOC: HO.SL 14:55
PROVIDERS: PCP Internal Medicine; Visit Provider Psychiatry & Neurology Neurology
DX: G47.33 Obstructive sleep apnea (adult) (pediatric) (principal); G47.10 Hypersomnia, unspecified; R06.83 Snoring
CPT/HCPCS: 95806

== ENCOUNTER 2025-02-22 11:48 | Outpatient (REF) | payer MEDICARE, SELFPAY | END 2025-02-22 11:49 | disposition home or self-care (01) | LOC: HO.LAB 11:48 | PROVIDERS: PCP Internal Medicine; Visit Provider Internal Medicine | DX: Z13.89 Encounter for screening for other disorder (principal) ==

== ENCOUNTER 2025-03-04 13:50 | Outpatient (REF) | payer MEDICARE, SELFPAY ==
--- NOTE | ~2025-03-04 | XR_ITS ---
EXAMINATION: XR CHEST CLINICAL INFORMATION: J18.9 - Pneumonia, unspecified organism COMPARISON: April 18, 2023. TECHNIQUE: PA and lateral views. FINDINGS: Prominence of the interstitial markings in the perihilar regions. No consolidation, pleural effusion or pneumothorax. Cardiomediastinal silhouette size is normal with a round apex. Multilevel thoracic spondylosis. XR/XR chest 2V IMPRESSION: Posterior acute small airway inflammatory process in the correct clinical settings. 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 Electronically signed by: Tejinder Pacheco MD 03/04/2025 03:27 PM EDT
--- OUTSIDE RECORDS SUMMARY | 2025-03-04 19:14 | XMS_ITS | Clinical Summary ---
Author Organization [facility] Address [address] [place] [id number] Phone Care Team Providers Care Database Administration Associate Name Role Phone Bruce Acosta MD Primary Care Provider [phone] Allergies No known active allergies Medications lisinopril [...] 08/30/2009 ZOSTER VACCINES (1 of 2) 08/30/2009 INFLUENZA VACCINE (#1) 2024 COVID-19 VACCINE ( - 2024-2 6 season) 2025 RSV VACCINE (1 - 1-dose 75+ series) [...] Medical Devices Not on file Insurance [place] [id number] [place]IC[place] [id number] MEDICARE PART A & [place] B Care Teams Database Administration Associate Relationship Specialty Start Date End Date Bruce Acosta MD [address] [place] [address] PCP - General Internal Medicine 12/17/23 Additional Source Comments The information contained in this document represents components of the legal health record. It is not the complete legal health record.[facility]
== END 2025-03-04 13:51 | disposition home or self-care (01) ==
LOC: HO.XRAY 13:50
PROVIDERS: PCP Internal Medicine; Visit Provider Internal Medicine
DX: J18.9 Pneumonia, unspecified organism (principal); E78.00 Pure hypercholesterolemia, unspecified; I10 Essential (primary) hypertension; R73.01 Impaired fasting glucose; Z79.2 Long term (current) use of antibiotics; Z79.890 Hormone replacement therapy; Z79.899 Other long term (current) drug therapy
CPT/HCPCS: 71046; 99212

== ENCOUNTER 2025-03-04 13:50 | Outpatient (AMB) | payer MEDICARE, SELFPAY ==
[2025-03-04 14:23] VITALS: BP 110/84; PULSE 68; TEMP 36.3; O2SAT 97; BMI 24.7
--- NOTE | 2025-03-04 14:23 | A.OFFPC_ITS ---
Vital Signs 03/04/25 14:23 Height 5 ft 7 in Weight 158 lb BMI 24.7 BP 110/84 Blood Pressure Location Lt brachial Position Sitting Pulse 68 Pulse Source Pulse Oximeter Temp 97.3 F Temp Source Temporal Artery Scan Pulse Oximetry (%) 97 Oxygen Delivery Method Room Air Intake Visit Reasons: hand pain Accompanied by: Spouse Allergies SEASONAL ALLERGIES Allergy (Mild, Uncoded 03/04/25 14:25) Itchy Eyes Medication List - Last Reconciled 03/04/25 by Bruce Acosta MD albuterol sulfate 90 mcg/actuation 2 puffs inhalation Q4H PRN amoxicillin-pot clavulanate 875-125 mg 1 tab PO BID atorvastatin 20 mg PO DAILY 90 days blood pressure monitor (Blood Pressure Kit) As directed capsaicin 0.025% 1 appl topical TID diclofenac sodium 1% (Voltaren Arthritis Pain) 4 grams topical QID doxycycline hyclate 100 mg PO BID fexofenadine (Sabrina Allergy) 180 mg PO DAILY fluticasone propionate 50 mcg/actuation (Flonase Allergy Relief) 2 sprays intranasal DAILY gabapentin 300 mg PO BEDTIME guaifenesin ER (Mucinex) 600 mg PO BID PRN levothyroxine 112 mcg orally Take every day except for Tuesday; 90 days lisinopril 5 mg PO DAILY multivitamin 1 tab PO DAILY propranolol 10 mg PO BID PRN triamcinolone acetonide 0.5% 1 appl topical BID Tobacco use date assessed: 03/04/25 Fall risk assessment: No Falls in past year Last assessed Fall Risk: 03/04/25 Dental Screening Dental Screen Date: 03/04/25 Did you have a dental visit in the last 12 months?: Yes Did you have a dental problem in the last 6 months where you did not have access to dental care?: No Was dental information given to patient?: Patient has dentist HPI hand pain HPI Details coughing , 2 week, , sob, PFSH Medical History Hypersomnia Snoring Vision changes Dementia History of prostate cancer Hypercholesterolemia Allergic rhinitis Hypertension Asthma Hypothyroid Surgical History History of facial surgery History of inguinal hernia repair SAH (subarachnoid hemorrhage) History of prostate surgery Family History Father No problems noted. Mother No problems noted. Social History Household Members: Spouse Housing: House Alcohol intake: never Patient Tobacco Use Status: Never used Tobacco Tobacco use type: Cigarette e-Cigarette/Vaping Use: Never Used Second Hand Smoke Exposure: No service: No Current occupational status: retired Cognitive needs: No Hearing needs: No Vision needs: No Questionnaire PHQ-9 Over the last 2 weeks, how often have you been bothered by any of the following problems? 1. Little interest or pleasure in doing things: not at all 2. Feeling down, depressed, or hopeless: not at all 3. Trouble falling or staying asleep, or sleeping too much: not at all 4. Feeling tired or having little energy: not at all 5. Poor appetite or overeating: not at all 6. Feeling bad about yourself - or that you are a failure or have let yourself or your family down: not at all 7. Trouble concentrating on things, such as reading the newspaper or watching television: not at all 8. Moving or speaking so slowly that other people could have noticed. Or the opposite - being so fidgety or restless that you have been moving around a lot more than usual: not at all 9. Thoughts that you would be better off or of hurting yourself in some way: not at all Total score: 0 Depression Screening Interpretation: Negative Depression Screening Done: Yes Source: Developed by Drs. Rosalino Reilly, Kiya Munoz, Manny Palmer and colleagues, with an educational mj from [employer]. Thrive Questionnaire Date Thrive assessed: 07/31/24 I am a: Patient What is your living situation today?: I have a steady place to live Within the past 12 months, did the food you bought not last and you didn't have the money to get more?: Never true Within the past 12 months, did you worry whether your food would run out before you got money to buy more?: Never true Do you have trouble paying for medicines?: No Do you have trouble getting transportation to medical appointments?: No Do you have trouble paying your heating and electricity bill?: No Do you have trouble taking care of your child, family member or friend?: No Do you have trouble with day-to-day activities such as bathing, preparing meals, shopping, managing finances, etc.?: No Are you currently unemployed and looking for a job?: No Are you interested in more education?: No Please select the resources that you would like help with: None Currently or been in a relationship where the following occur: No concerns reported THRIVE Score: 0 AUDIT C Alcohol Use Questionnaire (AUDIT-C) 1. How often do you have a drink containing alcohol?: Never 3. How often do you have six or more drinks on one occasion?: Never Total Score: 0 JACOB-7 AMB Questionnaire JACOB-7 Date JACOB - 7 assessed: 07/31/24 Feeling nervous, anxious, or on edge: 0 = Not at all Not being able to stop or control worryin = Not at all Worrying too much about different things: 0 = Not at all Trouble relaxin = Not at all Being so restless that it is hard to sit still: 0 = Not at all Becoming easily annoyed or irritable: 0 = Not at all Feeling afraid as if something awful might happen: 0 = Not at all Total JACOB-7 score (0-4 normal; 5-9 mild; 10-14 moderate; 15-21 severe): 0 Source: Developed by Drs. Rosalino Reilly, Kiya Munoz, Manny Palmer and colleagues, with an educational mj from [employer]. Physical exam (Primary Care) Vital Signs: Last Vital Signs Temp 97.3 F 03/04/25 14:23 Pulse 68 03/04/25 14:23 BP 110/84 03/04/25 14:23 Pulse Ox 97 03/04/25 14:23 Oxygen Delivery Method Room Air 03/04/25 14:23 BMI result Body Mass Index 24.7 Tobacco/Smoking Status: Tobacco use Status Tobacco use date assessed 03/04/25 03/04/25 14:27 Patient Tobacco Use Status Never used Tobacco 03/04/25 14:27 Tobacco use type Cigarette 03/04/25 14:27 e-Cigarette/Vaping Use Never Used 03/04/25 14:27 PHQ-9: PHQ-9 Score PHQ-9: Total score 0 03/04/25 14:41 Depression Screening Interpretation: Negative Thrive Assessment: Date of Thrive Assessment Date Thrive assessed 07/31/24 03/04/25 14:27 Currently or been in a relationship where the following occur: No concerns reported Const General: alert; No acute distress Eyes Conjunctivae: conjunctivae normal Resp Other: rhonchi R lung field Cardio Rate: regular rate Rhythm: regular rhythm GI Inspection: Yes normal to inspection Extrem General: Yes normal to inspection and No edema Coding Level of Care Code Est Pt Level 4 (41619) Complex EM visit Add On G2211 Diagnoses Hypercholesterolemia E78.00 Essential hypertension I10 Hypertension type: essential hypertension Impaired fasting blood sugar R73.01 Pneumonia J18.9 Assessment & Plan Assessment & Plan (1) Hypercholesterolemia: Code(s): E78.00 - Pure hypercholesterolemia, unspecified Category: Medical Plan: Avoid fried foods, chicken skin, eggs, butter margarine, pastries and meat. Be it pork or beef they have a lot of cholesterol on atorvastatin (2) Hypertension: Code(s): I10 - Essential (primary) hypertension Category: Medical Qualifiers: Hypertension type: essential hypertension Qualified Code(s): I10 - Essential (primary) hypertension Plan: Continue with blood pressure medication. Decrease salt intake and exercise takes lisinopril 5 10 (3) Impaired fasting blood sugar: Code(s): R73.01 - Impaired fasting glucose Category: Medical (4) Pneumonia: Code(s): J18.9 - Pneumonia, unspecified organism Category: Medical Plan History of Present Illness The patient is a 64-year-old male presenting with an acute problem. The patient has a history of dementia, asthma, hypertension, hypercholesterolemia, and hypothyroidism. He was diagnosed with prostate cancer in 2012 and had a tubular adenoma of the colon in 2020. The patient has impaired glucose tolerance with a blood sugar level of 108 mg/dL and a hemoglobin A1c of 6.1%, indicating a risk for diabetes. His last blood work in August showed anemia with a hemoglobin level of 13.1 g/dL. The patient is currently being treated for pneumonia with two antibiotics and a medication to help expectorate phlegm. Health Maintenance - Cholesterol management with atorvastatin - Blood pressure management with lisinopril and propranolol - Dietary advice to reduce intake of pasta, bread, rice, potatoes, and sweets to manage glucose levels Social History Review of Systems Physical Exam Results - Labs: Anemia with hemoglobin level of 13.1 g/dL (August), blood sugar 108 mg/dL, hemoglobin A1c 6.1% - Labs: Normal electrolytes, renal function, and liver function - Labs: Thyroid function normal (October 2024) Plan Patient was informed and verbally consented to the use of an ambient scribe for clinic note documentation during this visit. 1. Pneumonia The patient is being treated for pneumonia with two antibiotics to address the infection and a medication to assist in expectoration of phlegm. A chest x-ray has been ordered to further evaluate the condition. 2. Impaired Glucose Tolerance The patient has impaired glucose tolerance with a blood sugar level of 108 mg/dL and a hemoglobin A1c of 6.1%. Dietary modifications have been advised to reduce the intake of high-carbohydrate foods and sweets. 3. Anemia The patient has mild anemia with a hemoglobin level of 13.1 g/dL, which has been noted previously. Monitoring of the condition is recommended. Discussion Notes I discussed with the patient the treatment plan for pneumonia, including the use of two antibiotics and a medication to help with phlegm expectoration. We also talked about the need for a chest x-ray to further assess the condition. Dietary changes were recommended to manage glucose levels, and the importance of monitoring anemia was emphasized. Patient Instructions - Take prescribed antibiotics twice daily. - Drink plenty of water to help with phlegm. - Monitor for diarrhea and report if it occurs. - Consider taking [id number] probiotics. - Follow dietary recommendations to reduce carbohydrate and sugar intake. Orders: Orders XR chest 2V Today J18.9 - Pneumonia, unspecified organism Medications: New doxycycline hyclate 100 mg PO BID 14 caps 0RF amoxicillin-pot clavulanate 875-125 mg 1 tab PO BID 14 tabs 0RF guaifenesin ER (Mucinex) 600 mg PO BID PRN 14 tabs 0RF cough Refilled albuterol sulfate 90 mcg/actuation 8.5gm 200puffs 2 puffs inhalation Q4H PRN 8.5 grams 0RF shortness of breath or wheezing K52.9 - Noninfective gastroenteritis and colitis, unspecified
== END 2025-03-04 14:55 | disposition home or self-care (01) ==
LOC: HO.HMCH 13:51
PROVIDERS: PCP Internal Medicine; Visit Provider Internal Medicine
DX: E78.00 Pure hypercholesterolemia, unspecified (principal); I10 Essential (primary) hypertension; R73.01 Impaired fasting glucose; J18.9 Pneumonia, unspecified organism

== ENCOUNTER → 2025-03-04 15:06 | Outpatient (BNV) | payer MEDICARE, SELFPAY | PROVIDERS: PCP Internal Medicine; Visit Provider Radiology Diagnostic Radiology | DX: J18.9 Pneumonia, unspecified organism (principal) | CPT/HCPCS: 71046 ==